=== PATIENT | female | born 1995 | race Caucasian/White ===

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

== ENCOUNTER 2017-03-21 05:35 | Inpatient (IN) ==
[~2017-03-21 05:35] MED LIST: 0.9 % Sodium Chloride 1,000 ML IVC ONE
[2017-03-21] MEDS ORDERED: *HR* Dextrose 50 % in Water (Syg) 50 ML SYRINGE IVP PRN (05:41)
[2017-03-21] MEDS ORDERED: NACL IVC SCH (05:45)
[2017-03-21] MEDS ORDERED: SODIUM BICARBONATE IVC SCH (05:45)
[2017-03-21] MEDS ORDERED: D5 IVC SCH (05:45)
--- NOTE | 2017-03-21 05:46 | Internal Med History&Physical ---
Date of Encounter: 03/21/17 Time of Encounter: 05:43 Assessment and Plan (1) Diabetic ketoacidosis Current visit: Yes Status: Acute Will give total of 3 L bolus, pH 6.8 so we will start bicarb drip. She was hypoglycemic honorifics or facilities will hold incident report no clear infectious etiology. Etiology is most likely due to noncompliance. She is having acute kidney injury, will aggressively hydrate and monitor urine output. Consult special educator. Inpatient admission. She will receive heparin and famotidine for DVT and peptic ulcer disease prophylaxis Qualifiers: Qualified Code(s): E13.10 - Other specified diabetes mellitus with ketoacidosis without coma Internal Medicine - H&P: HPI Chief complaint: unrsponsive History of present illness: Ms. Black is a 21 year old female with type I diabetes mellitus was sent to [place] emergency room because of unresponsiveness. Patient has been getting progressively weaken lethargic over the past day. She was found to be in severe DKA in laboratory workup PERFORMED in [place] emergency room. Etiology is probably medication noncompliance. She denies any fever chills worsening cough, expectoration, diarrhea or urinary symptoms. Patient was transferred to our facility. She was more awake during my interview. Past Med Surg Social Fam HX - Past Medical History Medical history: diabetes Psychiatric history: ADHD, bipolar - Past Surgical History Surgical History: no surgical history - Social History Smoking Status: Never smoker Smokeless Tobacco Status: No Alcohol use: none Drug use: none - Family History Father Family Member Ethnicity: Non- Living Status: Still Living Hx Family Cardiac Disorders: Yes Hx Family Respiratory Disorders: Yes Hx Family Cancer: Yes Mother Family Member Ethnicity: Non- Living Status: Still Living Hx Family Cardiac Disorders: Yes (HTN) Hx Family Respiratory Disorders: Yes (Asthma) Hx Family Cancer: Yes Hx Family Endocrine Disorder: Yes Brother Family Member Ethnicity: Non- Living Status: Still Living Hx Family Respiratory Disorders: Yes (Asthma) Sister Family Member Ethnicity: Non- Living Status: Still Living Hx Family Respiratory Disorders: Yes (Asthma) Internal Medicine - H&P: Meds Insulin ASPART [NovoLOG] 8 unit SQ TIDWM #5 mls 11/17/16 [Rx] Insulin Glargine [Lantus] 28 unit SQ HS #9 mls 11/17/16 [Rx] Insulin NPH/REG 70/30 [HumuLIN 70/30 VIAL] 30 unit SQ BIDWM #3 vial 11/17/16 [Rx ] 3 Allergy/AdvReac Type Severity Reaction Status Date / Time surgical tape Allergy Redness of Uncoded 09/26/16 01:35 Skin All Systems PM: A 10-system review of systems was performed and is negative for pertinent findings except as documented above in the HPI. Review of systems: 10 point review of systems is negative except for HPI - Constitutional Vitals: Temp Pulse Resp BP Pulse Ox 98.2 F 112 18 115/72 100 03/21/17 04:35 03/21/17 04:35 03/21/17 04:35 03/21/17 04:35 03/21/17 04:35 Exam: Gen.: patient is lethargic not in distress. Cardiac: normal S1 S2 no additional sounds or murmurs chest: fair air entry. no active wheezing. No crackles or bronchial breathing. abdomen: soft nontender nondistended normal bowel sounds neuro: no focal deficit Mucous membranes: dry
[2017-03-21 06:03] LABS: Basophils % 0.2 %; Hematocrit 40.8 % (35.3-44.9); Hemoglobin 13.8 g/dL (11.5-15.4); Immature Granulocytes % 1.1 % (0-4); Immature Platelets 2.6 % (1.1-6.1); Lymphocytes # 0.6 K/mcL (0.6-4.6); Lymphocytes % 6.7 %; Mean Corpuscular HGB Conc 33.8 g/dL (31.6-35.5); Mean Corpuscular Hemoglobin 30.5 pg (28.0-33.3); Mean Corpuscular Volume 90.3 fL (83.0-100.0); Mean Platelet Volume 10.2 fL (9.4-12.4); Monocytes # 1.2 K/mcL (0.0-1.3); Monocytes % 14.8 %; Neutrophils # 6.5 K/mcL (1.6-8.9); Platelet Count 263 K/mcL (140-400); Red Blood Count 4.52 M/mcL (3.82-4.97); Red Cell Distribution Width 14.6 % (11.5-14.5); Segmented Neutrophils % 77.2 %
[2017-03-21 06:12] LABS: VBG PH 7.14 pH Units (7.32-7.42)
[2017-03-21 06:14] LABS: Beta-Hydroxybutyric Acid > 2.00 mmol/L (0.02-0.27)
[2017-03-21 06:16] LABS: BUN/Creatinine Ratio 12 (6-26); Blood Urea Nitrogen 11 mg/dL (7-20); Calcium 7.8 mg/dL (8.6-10.8); Chloride 119 mEq/L (98-109); Glucose 124 mg/dL (70-99); Magnesium 1.5 mg/dL (1.7-2.2); Osmolality,Calculated 305 (280-300); Potassium 2.7 mEq/L (3.5-4.5); Sodium 147 mEq/L (136-145); eGFR For African Americans > 60; eGFR For Non-African Americans > 60
[2017-03-21] MEDS: *HR* Heparin 5,000 UNIT/ML VIAL SQ SCH ×2 (06:17→17:57)
[2017-03-21 06:22] LABS: Carbon Dioxide 7 mEq/L (19-29)
[2017-03-21 06:26] LABS: Hemoglobin A1C 12.4 %
[2017-03-21] MEDS: Pantoprazole 40 MG VIAL IVP SCH (08:25)
[2017-03-21] MEDS: Insulin Human Regular 100 UNIT in 0.9 % Sodium Chloride 100 ML IVC SCH (08:25)
[2017-03-21] MEDS ORDERED: D5% in 0.45% NACL w KCl 20 MEQ/1,000 ML MLS IVC ONE (08:40)
[2017-03-21] MEDS: D5% in 0.45% NACL w KCl 20 MEQ/1,000 ML MLS IVC SCH ×4 (08:52→20:37)
[2017-03-21 10:20] LABS: VBG PH 7.09 pH Units (7.32-7.42)
[2017-03-21 10:27] LABS: BUN/Creatinine Ratio 7 (6-26); Blood Urea Nitrogen 8 mg/dL (7-20); Calcium 7.3 mg/dL (8.6-10.8); Chloride 117 mEq/L (98-109); Glucose 270 mg/dL (70-99); Osmolality,Calculated 306 (280-300); Potassium 2.8 mEq/L (3.5-4.5); Sodium 144 mEq/L (136-145); eGFR For African Americans > 60; eGFR For Non-African Americans > 60
[2017-03-21 10:29] LABS: Beta-Hydroxybutyric Acid > 2.00 mmol/L (0.02-0.27)
[2017-03-21 10:34] LABS: Carbon Dioxide 6 mEq/L (19-29)
[2017-03-21] MEDS ORDERED: Acetaminophen 325 MG TABLET PO PRN (12:11)
--- NOTE | 2017-03-21 14:04 | Internal Med Progress Note ---
Date of Encounter: 03/21/17 Time of Encounter: 14:02 - Assessment and plan (1) DKA (diabetic ketoacidoses) Current Visit: No Status: Acute Assessment and plan: Likely from medical noncompliance and/or severe dehydration. Minutes per DKA protocol. She is still on insulin drip right now running IV fluids. Continue per protocol VBG and BMP Qualifiers: Diabetes mellitus type: type 1 Diabetes mellitus complication detail: without coma Qualified Code(s): E10.10 - Type 1 diabetes mellitus with ketoacidosis without coma - Subjective Interval history: Since still on insulin drip, currently CO2 measured at 6. PH 7.09 bolus of fluid being given. She is in no acute distress. She cannot identify any recent illness or episodes of dehydration leading to DKA. - Constitutional Vitals: Temp Pulse Resp BP Pulse Ox 99.8 F H 100 24 107/63 100 03/21/17 11:30 03/21/17 11:30 03/21/17 11:30 03/21/17 11:30 03/21/17 11:30 Exam: Gen.: Drowsy, not in distress. Answers questions appropriately. AO 3. Cardiac: normal S1 S2 no additional sounds or murmurs chest: Good air entry. no wheezing. No crackles or bronchial breathing. abdomen: soft nontender nondistended normal bowel sounds neuro: no focal deficit Mucous membranes: dry Internal Medicine: Result - Labs CBC & Chem 7: 03/21/17 05:50 03/21/17 10:02 Labs: Short CBC 03/21/17 Range/Units 05:50 WBC 8.4 (4.3-11.1) K/mcL Hgb 13.8 D (11.5-15.4) g/dL Hct 40.8 (35.3-44.9) % Plt Count 263 (140-400) K/mcL Neutrophils # 6.5 (1.6-8.9) K/mcL BMP 03/21/17 03/21/17 05:50 10:02 Sodium 147 H 144 Potassium 2.7 L 2.8 L Chloride 119 H 117 H Carbon Dioxide 7 L* 6 L* BUN 11 8 Creatinine 0.90 1.07 Glucose 124 H 270 H Calcium 7.8 L 7.3 L - VTE Documentation of Mechanical Device: Intermittent pneumatic compression device Consult Discharge Plan - Plan Referrals: Jeb Smallwood, SHRUTI [Primary Care Provider] -
[2017-03-21 14:45] LABS: VBG PH 7.25 pH Units (7.32-7.42)
[2017-03-21 14:53] LABS: BUN/Creatinine Ratio 6 (6-26); Blood Urea Nitrogen 7 mg/dL (7-20); Calcium 7.5 mg/dL (8.6-10.8); Carbon Dioxide 11 mEq/L (19-29); Chloride 115 mEq/L (98-109); Glucose 231 mg/dL (70-99); Osmolality,Calculated 295 (280-300); Potassium 2.6 mEq/L (3.5-4.5); Sodium 140 mEq/L (136-145); eGFR For African Americans > 60; eGFR For Non-African Americans > 60
[2017-03-21 17:54] LABS: VBG PH 7.25 pH Units (7.32-7.42)
[2017-03-21 18:06] LABS: BUN/Creatinine Ratio 7 (6-26); Blood Urea Nitrogen 6 mg/dL (7-20); Calcium 7.5 mg/dL (8.6-10.8); Carbon Dioxide 15 mEq/L (19-29); Chloride 118 mEq/L (98-109); Glucose 128 mg/dL (70-99); Osmolality,Calculated 289 (280-300); Sodium 140 mEq/L (136-145); eGFR For African Americans > 60; eGFR For Non-African Americans > 60
[2017-03-21] MEDS ORDERED: Potassium Chloride 20 MEQ, Lidocaine 1% 2 ML in D5% in Water 250 ML IVPB ONE (18:24)
--- NOTE | 2017-03-21 19:31 | Electrocardiograph Report ---
[address] [address] Test Date: 2017-03-21 Pat Name: Brandi Black Department: 110 Room: 2N02 Gender: F Supervisor Transcribing Operators: : 1995 Requested By: Dom Lara Order Number: [id number] Reading MD: Aris Salinas MD Measurements Intervals [place] Rate: 93 P: 49 WV: 189 QRS: 82 QRSD: 95 T: -23 QT: 371 QTc: 422 Interpretive Statements SINUS RHYTHM Electronically Signed On 03-21-2017 19:29:42 EDT by Aris Salinas MD
--- NOTE | 2017-03-21 19:31 | Electrocardiograph Report ---
[place] [address] Test Date: 2017-03-21 Pat Name: Brandi Black Department: 110 Room: 2N02 Gender: Room Designer: : 1995 Requested By: Reynaldo Cowan Order Number: [id number] Reading MD: Aris Salinas MD Measurements Intervals [place] Rate: 93 P: 49 VT: 193 QRS: 82 QRSD: 92 T: -24 QT: 367 QTc: 418 Interpretive Statements SINUS RHYTHM Electronically Signed On 03-21-2017 19:29:58 EDT by Aris Salinas MD
[2017-03-21 22:33] LABS: VBG PH 7.33 pH Units (7.32-7.42)
[2017-03-21 22:38] LABS: BUN/Creatinine Ratio 6 (6-26); Calcium 7.9 mg/dL (8.6-10.8); Carbon Dioxide 14 mEq/L (19-29); Chloride 117 mEq/L (98-109); Glucose 185 mg/dL (70-99); Osmolality,Calculated 286 (280-300); Potassium 2.9 mEq/L (3.5-4.5); Sodium 137 mEq/L (136-145); eGFR For African Americans > 60; eGFR For Non-African Americans > 60
[2017-03-21 22:39] LABS: Blood Urea Nitrogen 5 mg/dL (7-20)
[2017-03-22] MEDS: Insulin Human Regular 100 UNIT in 0.9 % Sodium Chloride 100 ML IVC SCH (00:10)
[2017-03-22] MEDS: D5% in 0.45% NACL w KCl 20 MEQ/1,000 ML MLS IVC SCH ×5 (00:49→18:12)
[2017-03-22 04:06] LABS: Basophils % 0.2 %; Eosinophils # 0.1 K/mcL (0.0-0.6); Eosinophils % 1.4 %; Hematocrit 34.4 % (35.3-44.9); Hemoglobin 12.3 g/dL (11.5-15.4); Immature Granulocytes % 0.5 % (0-4); Lymphocytes # 1.7 K/mcL (0.6-4.6); Lymphocytes % 37.7 %; Mean Corpuscular HGB Conc 35.8 g/dL (31.6-35.5); Mean Corpuscular Hemoglobin 31.4 pg (28.0-33.3); Mean Corpuscular Volume 87.8 fL (83.0-100.0); Mean Platelet Volume 10.1 fL (9.4-12.4); Monocytes # 0.7 K/mcL (0.0-1.3); Monocytes % 15.6 %; Platelet Count 159 K/mcL (140-400); Red Blood Count 3.92 M/mcL (3.82-4.97); Red Cell Distribution Width 15.8 % (11.5-14.5); Segmented Neutrophils % 44.6 %
[2017-03-22 04:10] LABS: VBG PH 7.27 pH Units (7.32-7.42)
[2017-03-22 04:25] LABS: BUN/Creatinine Ratio 5 (6-26); Calcium 7.7 mg/dL (8.6-10.8); Carbon Dioxide 15 mEq/L (19-29); Chloride 117 mEq/L (98-109); Glucose 188 mg/dL (70-99); Osmolality,Calculated 290 (280-300); Potassium 3.2 mEq/L (3.5-4.5); Sodium 139 mEq/L (136-145); eGFR For African Americans > 60; eGFR For Non-African Americans > 60
[2017-03-22 04:27] LABS: Blood Urea Nitrogen 4 mg/dL (7-20)
[2017-03-22] MEDS: *HR* Heparin 5,000 UNIT/ML VIAL SQ SCH ×2 (05:16→18:13)
[2017-03-22 09:09] LABS: VBG PH 7.32 pH Units (7.32-7.42)
[2017-03-22 09:16] LABS: BUN/Creatinine Ratio 4 (6-26); Calcium 7.9 mg/dL (8.6-10.8); Carbon Dioxide 18 mEq/L (19-29); Chloride 116 mEq/L (98-109); Glucose 116 mg/dL (70-99); Osmolality,Calculated 288 (280-300); Potassium 2.7 mEq/L (3.5-4.5); Sodium 140 mEq/L (136-145); eGFR For African Americans > 60; eGFR For Non-African Americans > 60
[2017-03-22 09:18] LABS: Blood Urea Nitrogen 3 mg/dL (7-20)
[2017-03-22] MEDS: Pantoprazole 40 MG VIAL IVP SCH (09:33)
[2017-03-22 12:58] LABS: VBG PH 7.27 pH Units (7.32-7.42)
[2017-03-22 13:03] LABS: BUN/Creatinine Ratio 4 (6-26); Calcium 7.8 mg/dL (8.6-10.8); Carbon Dioxide 17 mEq/L (19-29); Chloride 113 mEq/L (98-109); Glucose 209 mg/dL (70-99); Osmolality,Calculated 289 (280-300); Potassium 2.9 mEq/L (3.5-4.5); Sodium 138 mEq/L (136-145); eGFR For African Americans > 60; eGFR For Non-African Americans > 60
[2017-03-22 13:04] LABS: Blood Urea Nitrogen 3 mg/dL (7-20)
[2017-03-22] MEDS ORDERED: *HR* Dextrose 50 % in Water (Syg) 50 ML SYRINGE IVP PRN (15:49)
[2017-03-22] MEDS ORDERED: Magnesium Sulfate 2 GM in D5% in Water 100 ML IVPB PRN (15:52)
[2017-03-22] MEDS ORDERED: 0.9 % Sodium Chloride w KCl 20 MEQ/1,000 ML MLS IVC SCH (16:00)
[2017-03-22] MEDS ORDERED: Insulin Human Regular 100 UNIT in 0.9 % Sodium Chloride 100 ML IVC SCH (16:00)
[2017-03-22 16:22] LABS: Bilirubin,Urine Negative (Negative); Blood,Urine Moderate (Negative); Clarity,Urine Clear (Clear); Color,Urine Yellow (Yellow); Glucose,Urine (UA) 100 mg/dL (Normal); Ketones,Urine Negative (Negative); Leukocyte Esterase,Urine Trace (Negative); Nitrite,Urine Negative (Negative); Protein,Urine Negative (Neg-Trace); Specific Gravity,Urine 1.007 (1.010-1.025); Urobilinogen,Urine Normal (Normal)
[2017-03-22 16:43] LABS: VBG PH 7.37 pH Units (7.32-7.42)
[2017-03-22 16:58] LABS: BUN/Creatinine Ratio 3 (6-26); Calcium 7.7 mg/dL (8.6-10.8); Carbon Dioxide 17 mEq/L (19-29); Chloride 113 mEq/L (98-109); Glucose 212 mg/dL (70-99); Osmolality,Calculated 284 (280-300); Potassium 3.5 mEq/L (3.5-4.5); Sodium 136 mEq/L (136-145); eGFR For African Americans > 60; eGFR For Non-African Americans > 60
[2017-03-22 16:59] LABS: Blood Urea Nitrogen 2 mg/dL (7-20)
--- NOTE | 2017-03-22 18:38 | Internal Med Progress Note ---
Date of Encounter: 03/22/17 Time of Encounter: 12:00 - Assessment and plan (1) DKA (diabetic ketoacidoses) Current Visit: No Status: Inactive Assessment and plan: Poorly controlled T1DM patient, A1C was 12. Continue treatment per DKA protocol. Qualifiers: Diabetes mellitus type: type 1 Diabetes mellitus complication detail: without coma Qualified Code(s): E10.10 - Type 1 diabetes mellitus with ketoacidosis without coma - Subjective Interval history: Since still on insulin drip, currently CO2 measured at 6. PH 7.09 bolus of fluid being given. She is in no acute distress. She cannot identify any recent illness or episodes of dehydration leading to DKA. - Constitutional Vitals: Temp Pulse Resp BP Pulse Ox 98.5 F 98 14 117/92 100 03/22/17 15:31 03/22/17 18:08 03/22/17 15:31 03/22/17 15:31 03/22/17 18:08 General appearance: Present: A&O X 3, no acute distress - Respiratory Respiratory exam: Present: CTAB. Absent: accessory muscle use, rales, rhonchi, wheezes - Cardiovascular Cardiovascular exam: Present: RRR, +S1, +S2. Absent: diastolic murmur, gallop, rubs, systolic murmur - GI/Abdominal GI/Abdominal exam: Present: normal bowel sounds, soft, no peritoneal signs. Absent: distended, tenderness Internal Medicine: Result - Labs CBC & Chem 7: 03/22/17 03:52 03/22/17 19:59 Labs: Short CBC 03/22/17 Range/Units 03:52 WBC 4.4 (4.3-11.1) K/mcL Hgb 12.3 D (11.5-15.4) g/dL Hct 34.4 L (35.3-44.9) % Plt Count 159 (140-400) K/mcL Neutrophils # 2.0 (1.6-8.9) K/mcL BMP 03/21/17 03/22/17 03/22/17 22:21 03:52 08:44 Sodium 137 139 140 Potassium 2.9 L 3.2 L 2.7 L Chloride 117 H 117 H 116 H Carbon Dioxide 14 L 15 L 18 L BUN 5 L 4 L 3 L Creatinine 0.81 0.78 0.70 Glucose 185 H 188 H 116 H Calcium 7.9 L 7.7 L 7.9 L 03/22/17 03/22/17 12:44 16:34 Sodium 138 136 Potassium 2.9 L 3.5 Chloride 113 H 113 H Carbon Dioxide 17 L 17 L BUN 3 L 2 L Creatinine 0.72 0.67 Glucose 209 H 212 H Calcium 7.8 L 7.7 L Urine 03/22/17 Range/Units 16:15 Urine Color Yellow (Yellow) Urine Clarity Clear (Clear) Urine pH 6.0 (5.0-8.0) pH Units Ur Specific [place] 1.007 L (1.010-1.025) Urine Protein Negative (Neg-Trace) mg/dL Urine Glucose (UA) 100 H (Normal) mg/dL - VTE Documentation of Mechanical Device: Intermittent pneumatic compression device Consult Discharge Plan - Plan Referrals: Jeb Smallwood, WORK MEASUREMENT ENGINEER [Primary Care Provider] - (SENT WEB REQUEST ON 03-22-17 @ 1447)
[2017-03-22 20:05] LABS: VBG PH 7.48 pH Units (7.32-7.42)
[2017-03-22 20:20] LABS: BUN/Creatinine Ratio 4 (6-26); Carbon Dioxide 19 mEq/L (19-29); Chloride 114 mEq/L (98-109); Glucose 91 mg/dL (70-99); Osmolality,Calculated 282 (280-300); Potassium 3.3 mEq/L (3.5-4.5); Sodium 138 mEq/L (136-145); eGFR For African Americans > 60; eGFR For Non-African Americans > 60
[2017-03-22 20:22] LABS: Blood Urea Nitrogen 2 mg/dL (7-20)
[2017-03-22] MEDS ORDERED: Dextrose Gel 15 GM PO PRN ×2 (21:32)
[2017-03-22] MEDS ORDERED: D5% in Water 1,000 ML IVC PRN (21:32)
[2017-03-23] MEDS: Insulin LISPRO 300 UNITS/3 ML VIAL SQ SCH ×7 (01:28→17:36)
[2017-03-23] MEDS: *HR* Heparin 5,000 UNIT/ML VIAL SQ SCH ×2 (05:17→18:01)
[2017-03-23 05:27] LABS: Basophils % 0.8 %; Eosinophils # 0.1 K/mcL (0.0-0.6); Eosinophils % 2.1 %; Hematocrit 35.5 % (35.3-44.9); Hemoglobin 12.4 g/dL (11.5-15.4); Immature Granulocytes % 0.3 % (0-4); Lymphocytes # 1.9 K/mcL (0.6-4.6); Lymphocytes % 49.6 %; Mean Corpuscular HGB Conc 34.9 g/dL (31.6-35.5); Mean Corpuscular Hemoglobin 30.6 pg (28.0-33.3); Mean Corpuscular Volume 87.7 fL (83.0-100.0); Mean Platelet Volume 10.6 fL (9.4-12.4); Monocytes # 0.5 K/mcL (0.0-1.3); Monocytes % 13.1 %; Neutrophils # 1.3 K/mcL (1.6-8.9); Platelet Count 160 K/mcL (140-400); Red Blood Count 4.05 M/mcL (3.82-4.97); Red Cell Distribution Width 15.8 % (11.5-14.5); Segmented Neutrophils % 34.1 %
[2017-03-23 06:00] LABS: BUN/Creatinine Ratio 3 (6-26); Calcium 8.4 mg/dL (8.6-10.8); Carbon Dioxide 19 mEq/L (19-29); Chloride 111 mEq/L (98-109); Glucose 226 mg/dL (70-99); Osmolality,Calculated 289 (280-300); Potassium 3.6 mEq/L (3.5-4.5); Sodium 138 mEq/L (136-145); eGFR For African Americans > 60; eGFR For Non-African Americans > 60
[2017-03-23 06:06] LABS: Blood Urea Nitrogen 2 mg/dL (7-20)
[2017-03-23] MEDS: Pantoprazole 40 MG VIAL IVP SCH (07:48)
[2017-03-23] MEDS: Insulin DETEMIR 100 UNIT/ML X5UNITS SQ SCH (08:57)
--- NOTE | 2017-03-23 09:18 | Internal Med Progress Note ---
Date of Encounter: 03/23/17 Time of Encounter: 09:00 - Assessment and plan (1) Diabetic ketoacidosis Current Visit: Yes Status: Acute Assessment and plan: Suspected noncompliance, although patient reports compliance to meds and diet. Acidosis is currently resolved, off IV insulin drip. Discontinue IV fluids. Start subcutaneous basal bolus insulin regimen and diabetic diet. Blood sugar noted to be elevated this morning as she did not receive long acting insulin. certified adapted physical educator consult. HbA1C noted to be 12.4%. Qualifiers: Diabetes mellitus type: type 1 Diabetes mellitus complication detail: without coma Qualified Code(s): E10.10 - Type 1 diabetes mellitus with ketoacidosis without coma (2) Hypomagnesemia Current Visit: Yes Status: Acute Assessment and plan: Supplement with IV magnesium sulfate and continue to monitor. (3) Hypophosphatemia Current Visit: Yes Status: Acute Assessment and plan: Severe. Replete with IV and oral potassium and sodium phosphate, and recheck in am. - Subjective Interval history: Reports feeling better today; tolerates solid diet; no nausea, vomiting, abdominal pain; off IV insulin drip; reports having slightly elevated HR since childhood; - Constitutional Vitals: Temp Pulse Resp BP Pulse Ox 98.6 F 93 16 120/74 99 03/23/17 07:05 03/23/17 07:36 03/23/17 07:05 03/23/17 07:05 03/23/17 07:36 General appearance: Present: A&O X 3, answers questions appropriately - Respiratory Respiratory exam: Present: CTAB. Absent: accessory muscle use, rales, rhonchi, wheezes - Cardiovascular Cardiovascular exam: Present: RRR, +S1, +S2, tachycardia. Absent: diastolic murmur, gallop, rubs, systolic murmur - GI/Abdominal GI/Abdominal exam: Present: normal bowel sounds, soft, no peritoneal signs. Absent: distended, tenderness - Extremities Exam Extremities exam: Present: full ROM, warm, radial pulses palpable and symmetrical. Absent: calf tenderness, cyanotic, pedal edema - Neurological Exam Neurological exam: Present: CN II-XII intact, oriented X3, no focal deficits. Absent: pronater drift, facial droop, speech deficit Internal Medicine: Result - Labs CBC & Chem 7: 03/23/17 04:25 03/23/17 04:25 Labs: Short CBC 03/23/17 Range/Units 04:25 WBC 3.8 L (4.3-11.1) K/mcL Hgb 12.4 (11.5-15.4) g/dL Hct 35.5 (35.3-44.9) % Plt Count 160 (140-400) K/mcL Neutrophils # 1.3 L (1.6-8.9) K/mcL BMP 03/22/17 03/22/17 03/22/17 08:44 12:44 16:34 Sodium 140 138 136 Potassium 2.7 L 2.9 L 3.5 Chloride 116 H 113 H 113 H Carbon Dioxide 18 L 17 L 17 L BUN 3 L 3 L 2 L Creatinine 0.70 0.72 0.67 Glucose 116 H 209 H 212 H Calcium 7.9 L 7.8 L 7.7 L 03/22/17 03/23/17 19:59 04:25 Sodium 138 138 Potassium 3.3 L 3.6 Chloride 114 H 111 H Carbon Dioxide 19 19 BUN 2 L 2 L Creatinine 0.56 L 0.66 Glucose 91 226 H Calcium 8.0 L 8.4 L Urine 03/22/17 Range/Units 16:15 Urine Color Yellow (Yellow) Urine Clarity Clear (Clear) Urine pH 6.0 (5.0-8.0) pH Units Ur Specific [place] 1.007 L (1.010-1.025) Urine Protein Negative (Neg-Trace) mg/dL Urine Glucose (UA) 100 H (Normal) mg/dL - VTE Documentation of Mechanical Device: Intermittent pneumatic compression device Consult Discharge Plan - Plan Referrals: Jeb Smallwood CNP [Primary Care Provider] - 03/29/17 11:00 am ()
[2017-03-23 13:10] LABS: Magnesium 1.6 mg/dL (1.7-2.2)
[2017-03-23 13:14] LABS: Phosphorous < 0.7 mg/dL (2.3-4.7)
[2017-03-23] MEDS ORDERED: Potassium Phosphate 44 MEQ in 0.9 % Sodium Chloride 250 ML IVPB ONE (13:18)
[2017-03-23] MEDS ORDERED: Magnesium Sulfate 2 GM in D5% in Water 100 ML IVPB ONE (13:18)
[2017-03-23] MEDS ORDERED: Insulin LISPRO 300 UNITS/3 ML VIAL SQ SCH (21:00)
[2017-03-24] MEDS: *HR* Heparin 5,000 UNIT/ML VIAL SQ SCH (05:22)
[2017-03-24 05:50] LABS: Basophils % 0.3 %; Eosinophils % 1.4 %; Hematocrit 33.2 % (35.3-44.9); Hemoglobin 11.5 g/dL (11.5-15.4); Lymphocytes # 1.6 K/mcL (0.6-4.6); Lymphocytes % 56.4 %; Mean Corpuscular HGB Conc 34.6 g/dL (31.6-35.5); Mean Corpuscular Hemoglobin 30.3 pg (28.0-33.3); Mean Corpuscular Volume 87.6 fL (83.0-100.0); Mean Platelet Volume 10.3 fL (9.4-12.4); Monocytes # 0.3 K/mcL (0.0-1.3); Neutrophils # 0.9 K/mcL (1.6-8.9); Platelet Count 157 K/mcL (140-400); Red Blood Count 3.79 M/mcL (3.82-4.97); Segmented Neutrophils % 31.9 %
[2017-03-24 06:04] LABS: BUN/Creatinine Ratio 22 (6-26); Calcium 8.4 mg/dL (8.6-10.8); Carbon Dioxide 28 mEq/L (19-29); Chloride 102 mEq/L (98-109); Glucose 238 mg/dL (70-99); Magnesium 1.8 mg/dL (1.7-2.2); Osmolality,Calculated 294 (280-300); Phosphorous 4.6 mg/dL (2.3-4.7); Potassium 3.4 mEq/L (3.5-4.5); Sodium 138 mEq/L (136-145); eGFR For African Americans > 60; eGFR For Non-African Americans > 60
[2017-03-24 06:05] LABS: Blood Urea Nitrogen 13 mg/dL (7-20)
[2017-03-24 07:19] VITALS: BP 114/75
[2017-03-24] MEDS: Insulin DETEMIR 100 UNIT/ML X5UNITS SQ SCH (08:01)
[2017-03-24] MEDS: Insulin LISPRO 300 UNITS/3 ML VIAL SQ SCH ×2 (08:02)
--- NOTE | 2017-03-24 09:45 | Discharge Summary ---
Date of Encounter: 03/24/17 Time of Encounter: 09:41 - Discharge Diagnosis (1) DKA (diabetic ketoacidoses) Priority: Primary Status: Resolved Comments: Possibly secondary to noncompliance Qualifiers: Diabetes mellitus type: type 1 Diabetes mellitus complication detail: with coma Qualified Code(s): E10.11 - Type 1 diabetes mellitus with ketoacidosis with coma (2) H/O noncompliance with medical treatment, presenting hazards to health Priority: Secondary Status: Chronic (3) Adult ADHD Priority: Secondary Status: Chronic (4) Bipolar disorder Priority: Secondary Status: Chronic Qualifiers: Active/Remission status: remission status unspecified Qualified Code(s): F31.9 - Bipolar disorder, unspecified (5) Hypomagnesemia Priority: Secondary Status: Acute (6) Hypophosphatemia Priority: Secondary Status: Acute - Discharge Medications Prescriptions: Insulin ASPART [Novolog Flexpen] 6 unit SQ TIDWM 30 Days #2 insuln.pen Insulin Glargine,Hum.rec.anlog [Lantus Solostar] 28 unit SQ QAM 30 Days #2 insuln.pen Home Medications: Insulin ASPART [Novolog Flexpen] 6 unit SQ TIDWM 30 Days #2 insuln.pen 03/24/17 [Rx] Insulin Glargine,Hum.rec.anlog [Lantus Solostar] 28 unit SQ QAM 30 Days #2 insuln.pen 03/24/17 [Rx] Insulin LISPRO [HumaLOG] 0 units SQ HS vial 03/24/17 [Rx] Insulin LISPRO [HumaLOG] 0 units SQ TIDAC vial 03/24/17 [Rx] Allergies/Adverse Reactions: 3 Allergy/AdvReac Type Severity Reaction Status Date / Time surgical tape Allergy Redness of Uncoded 09/26/16 01:35 Skin Date of admission: 03/21/17 05:35 Primary care physician: Jeb Smallwood CNP Consults: 03/23/17 12:46 Consult to Maintenance Analyst [CONS] Routine Reason for SW Consult: pt may need financial assistance with getting required medications, living arrangements. - Patient Status Disposition: Home, Self-Care Condition: Good Overall status at discharge: patient is back to baseline - Discharge Instructions Follow Up With: Jeb Smallwood CNP [Primary Care Provider] - 03/29/17 11:00 am () Additional Instructions: Follow-up with primary care physician within the next 7 days. Continue insulin therapy at home and be compliant with all doses. - Diet and Activity Activity: increase activity as tolerated Diet: diabetic diet Hospital course: Ms. Black is a 21 year old female with a past medical history of type I diabetes mellitus, ADHD, bipolar disorder, was sent from [place] emergency room because of unresponsiveness. Patient has been getting progressively weaker , and lethargic over the past day. She was found to be in severe DKA in laboratory workup PERFORMED in [place] emergency room. Etiology is probably medication noncompliance. She denied any fever chills worsening cough, expectoration, diarrhea or urinary symptoms. UA and chest x-rays were unremarkable. PH was 6.8 for which she was started on a bicarbonate drip, she was continued on an insulin drip which resolved her DKA. The patient was given the option to modify her insulin schedule but she says that she prefers to stay with her own schedule of lispro 6 units 3 times a day with insulin sliding scale and 28 units of Lantus at night. She was given new prescriptions, as it is not known whether the patient has been storing her insulin properly or not. Potassium was 2.9 was repleted, to basically 0.4. Phosphorus was less than 0.7 and was repleted, today is 4.6, magnesium was low as well and today's 1.8. - Time Spent with Patient Total time spent providing and/or coordinating discharge services: Greater than 30 minutes (40 min) - Constitutional Vitals: Temp Pulse Resp BP Pulse Ox 98.0 F 87 16 114/75 99 03/24/17 07:13 03/24/17 07:13 03/24/17 07:13 03/24/17 07:13 03/24/17 07:13 General appearance: Present: A&O X 3, answers questions appropriately - Head Head exam: Present: atraumatic, normocephalic - Eye Eye exam: Present: PERRL, conjuntiva pink, sclera anicteric Pupils: Present: PERRL - Neck Neck exam general surgery: Present: supple, trachea midline. Absent: lymphadenopathy - Respiratory Respiratory exam: Present: CTAB. Absent: accessory muscle use, rales, rhonchi, wheezes - Cardiovascular Cardiovascular exam: Present: RRR, +S1, +S2. Absent: diastolic murmur, gallop, rubs, systolic murmur - GI/Abdominal GI/Abdominal exam: Present: normal bowel sounds, soft, no peritoneal signs. Absent: distended, tenderness - Extremities Exam Extremities exam: Present: warm, radial pulses palpable and symmetrical. Absent : calf tenderness, cyanotic, pedal edema - Neurological Exam Neurological exam: Present: CN II-XII intact, oriented X3, no focal deficits. Absent: pronater drift, facial droop, speech deficit - Skin Skin exam: Present: dry, intact - VTE Documentation of Mechanical Device: Intermittent pneumatic compression device
== END 2017-03-24 12:17 | disposition home or self-care (01) | DRG 420 ==
LOC: 2NNU → SUATTDRO 05:35 → 2ANU 03-23 10:38
PROVIDERS: ADMIT Hospitalist; ATTEND Internal Medicine

== ENCOUNTER 2017-04-04 13:51 | Inpatient (IN) ==
[2017-04-04] MEDS ORDERED: Naloxone 0.4 MG/ML INJ IVP PRN (16:13)
[2017-04-04] MEDS ORDERED: D5% in 0.45% NACL 1,000 ML IVC PRN (16:16)
[2017-04-04] MEDS ORDERED: Insulin Regular, Human 100 UNIT/ML IV PRN (16:16)
[2017-04-04] MEDS ORDERED: *HR* Dextrose 50 % in Water (Syg) 50 ML SYRINGE IVP PRN (16:16)
[2017-04-04] MEDS ORDERED: Insulin Human Regular 100 UNIT in 0.9 % Sodium Chloride 100 ML IVC SCH (16:30)
[2017-04-04] MEDS ORDERED: 0.9 % Sodium Chloride 1,000 ML IVC SCH (16:30)
--- NOTE | 2017-04-04 16:32 | Internal Med History&Physical ---
Date of Encounter: 04/04/17 Time of Encounter: 16:31 Assessment and Plan (1) DVT prophylaxis Current visit: No Status: Acute Subcutaneous heparin (2) Encephalopathy Current visit: No Status: Acute Aspiration precautions. Avoid sedatives. (3) Diabetic ketoacidosis Current visit: No Status: Acute Patient with a blood glucose of greater than 700, positive ketones and pH of 7.02 supporting diagnosis of DKA with severe metabolic acidosis. We will admit the patient to the ICU. She received a bolus of IV fluids at [facility]. We will start normal saline at 500 mL per hour. Add potassium according to staff potassium levels. Check stat labs including Chem-7 and magnesium and CBC lactic acid and ABG. Urinalysis and chest x-ray shows no source of infection. Abdomen is nontender nondistended and therefore I do not suspect an abdominal source. We will start insulin drip per DKA protocol with blood glucose fingerstick every one hour and adjustment of infusion rate. We will check BMP and VBG every 4 hour and determine anion gap and monitor venous pH. Based on the pH of 7.02 to I recommended administration of 100 mEq of sodium bicarbonate which was given [facility]. I will repeat ABG. We will readminister sodium bicarbonate if arterial pH is less than 7.1. The high probability of emergent and significant clinical decompensation with potential impairment of organ function including cardiovascular and respiratory systems required my full attention and presence at the bedside. I spent 40 minutes of critical care time which involved decision making of high complexity to assess, manipulate, and support vital organ system, in order to prevent further life threatening deterioration of the patient's condition. The critical care time was spent in the patient's room and/or its close proximity and involved obtaining updated history and examining the patient, reviewing EKGs, imaging studies and laboratory data, ordering medications and laboratory studies , and reevaluating for clinical response. The time took performing any procedures was not included in the critical care time quoted above and is billed separately. Qualifiers: Diabetes mellitus type: type 1 Diabetes mellitus complication detail: without coma Qualified Code(s): E10.10 - Type 1 diabetes mellitus with ketoacidosis without coma (4) Metabolic acidosis Current visit: Yes Status: Acute Secondary to DKA, possibly combined with lactic acidosis. We will treat with bolus IV sodium bicarbonate and pH is less than 7.1. Internal Medicine - H&P: HPI Chief complaint: unresponsive Admitted From: Intrahospital Transfer Plans for Post Hospital Care: Home History of present illness: Ms. Black is a 21 year old female with past medical history significant for type 1 diabetes with multiple episodes of DKA who was transferred from [facility] where she was brought by EMS for evaluation of unresponsiveness. She cannot provide reliable history due to altered mental status secondary to encephalopathy. Per [facility] chart her sisters reported that she has been vomiting since 11 PM last night. Her blood glucose was elevated she appeared to be unresponsive. She was treated with IV fluids and insulin and transferred to our hospital for further care. Per our records review she was discharged from our hospital after being admitted for DKA 9 days ago. Review of systems could not be obtained due to altered mental status Past Med Surg Social Fam HX - Past Medical History Medical history: diabetes, other Psychiatric history: ADHD, bipolar - Past Surgical History Surgical History: no surgical history - Social History Smoking Status: Never smoker Smokeless Tobacco Status: No Alcohol use: none Drug use: none - Family History Father Family Member Ethnicity: Non- Living Status: Still Living Hx Family Cardiac Disorders: Yes Hx Family Respiratory Disorders: Yes Hx Family Cancer: Yes Mother Family Member Ethnicity: Non- Living Status: Still Living Hx Family Cardiac Disorders: Yes (HTN) Hx Family Respiratory Disorders: Yes (Asthma) Hx Family Cancer: Yes Hx Family Endocrine Disorder: Yes Brother Family Member Ethnicity: Non- Living Status: Still Living Hx Family Respiratory Disorders: Yes (Asthma) Sister Family Member Ethnicity: Non- Living Status: Still Living Hx Family Respiratory Disorders: Yes (asthma) Internal Medicine - H&P: Meds Insulin ASPART [Novolog Flexpen] 6 unit SQ TIDWM 30 Days #2 insuln.pen 03/24/17 [Rx] Insulin Glargine,Hum.rec.anlog [Lantus Solostar] 28 unit SQ QAM 30 Days #2 insuln.pen 03/24/17 [Rx] Insulin LISPRO [HumaLOG] 0 units SQ HS vial 03/24/17 [Rx] Insulin LISPRO [HumaLOG] 0 units SQ TIDAC vial 03/24/17 [Rx] 3 Allergy/AdvReac Type Severity Reaction Status Date / Time surgical tape Allergy Redness of Uncoded 09/26/16 01:35 Skin All Systems PM: A 10-system review of systems was performed and is negative for pertinent findings except as documented above in the HPI. - Constitutional Vitals: Temp Pulse Resp BP Pulse Ox 97.6 F 116 26 137/87 100 04/04/17 15:45 04/04/17 15:45 04/04/17 15:45 04/04/17 15:45 04/04/17 15:45 General appearance: Present: A&O X 0 - Eye Eye exam: Present: PERRL, conjuntiva pink, sclera anicteric Pupils: Present: PERRL - Neck Neck exam general surgery: Present: supple, trachea midline. Absent: lymphadenopathy - Respiratory Respiratory exam: Present: CTAB, tachypnea (Kussmaul breathing). Absent: accessory muscle use, rales, rhonchi, wheezes - Cardiovascular Cardiovascular exam: Present: RRR, +S1, +S2, tachycardia. Absent: diastolic murmur, gallop, rubs, systolic murmur - GI/Abdominal GI/Abdominal exam: Present: normal bowel sounds, soft, no peritoneal signs. Absent: distended, tenderness - Extremities Exam Extremities exam: Present: warm, radial pulses palpable and symmetrical. Absent : calf tenderness, cyanotic, pedal edema - Neurological Exam Additional comments: Obtunded - Skin Skin exam: Present: dry, intact Internal Med - H&P Results - Labs CBC & Chem 7: 04/04/17 16:51 Labs: Reviewed from [facility] medical record laboratory data for 2016: ABG: PH 7.02, CO2 15, O2 144 Chem-7: Sodium 1:30, potassium 4.0, chloride 102, bicarbonate less than 5, BUN 15, creatinine 1.63, glucose 758. Urinalysis negative for nitrite and leukocyte esterase Urine drug screen mckenzie-negative - Impressions CXR: no acute cardiopulmonary disease
[2017-04-04] MEDS: 0.45 % Sodium Chloride w/KCl 20 MEQ/1,000 ML MLS IVC SCH ×6 (16:40→23:58)
[2017-04-04 16:59] LABS: Basophils # 0.1 K/mcL (0.0-0.2); Basophils % 0.4 %; Eosinophils % 0.1 %; Hematocrit 39.5 % (35.3-44.9); Hemoglobin 13.7 g/dL (11.5-15.4); Immature Granulocytes % 2.4 % (0-4); Immature Platelets 3.6 % (1.1-6.1); Lymphocytes # 1.8 K/mcL (0.6-4.6); Lymphocytes % 8.9 %; Mean Corpuscular HGB Conc 34.7 g/dL (31.6-35.5); Mean Corpuscular Hemoglobin 31.2 pg (28.0-33.3); Mean Platelet Volume 9.9 fL (9.4-12.4); Monocytes # 0.9 K/mcL (0.0-1.3); Monocytes % 4.5 %; Neutrophils # 17.1 K/mcL (1.6-8.9); Platelet Count 225 K/mcL (140-400); Red Blood Count 4.39 M/mcL (3.82-4.97); Red Cell Distribution Width 13.9 % (11.5-14.5); Segmented Neutrophils % 83.7 %
[2017-04-04] MEDS: Famotidine 20 MG/2 ML VIAL IVP SCH (17:10)
[2017-04-04 17:11] LABS: BUN/Creatinine Ratio 12 (6-26); Blood Urea Nitrogen 12 mg/dL (7-20); Chloride 111 mEq/L (98-109); Glucose 320 mg/dL (70-99); Magnesium 1.9 mg/dL (1.7-2.2); Osmolality,Calculated 296 (280-300); Potassium 3.2 mEq/L (3.5-4.5); Sodium 137 mEq/L (136-145); eGFR For African Americans > 60; eGFR For Non-African Americans > 60
[2017-04-04 17:14] LABS: ABG Base Excess -23 mEq/L (-2 to 3); ABG HCO3 4 mEq/L (21-27); ABG Oxygen Saturation 97 % (95-98); ABG PCO2 14 mmHg (35-45); ABG PH 7.12 pH Units (7.32-7.45); ABG PO2 123 mmHg (85-104); ABG TCO2 5 mEq/L (20-26)
[2017-04-04 17:17] LABS: Carbon Dioxide < 5 mEq/L (19-29)
[2017-04-04 21:08] LABS: BUN/Creatinine Ratio 11 (6-26); Blood Urea Nitrogen 10 mg/dL (7-20); Chloride 114 mEq/L (98-109); Glucose 200 mg/dL (70-99); Magnesium 1.7 mg/dL (1.7-2.2); Osmolality,Calculated 291 (280-300); Potassium 3.3 mEq/L (3.5-4.5); Sodium 138 mEq/L (136-145); eGFR For African Americans > 60; eGFR For Non-African Americans > 60
[2017-04-04] MEDS: D5% in 0.45% NACL w KCl 20 MEQ/1,000 ML MLS IVC PRN (21:11)
[2017-04-04 21:15] LABS: Carbon Dioxide < 5 mEq/L (19-29)
[2017-04-04] MEDS: *HR* Heparin 5,000 UNIT/ML VIAL SQ SCH (23:56)
[2017-04-05] MEDS: *HR* Heparin 5,000 UNIT/ML VIAL SQ SCH ×4 (00:06→21:11)
[2017-04-05] MEDS: 0.45 % Sodium Chloride w/KCl 20 MEQ/1,000 ML MLS IVC SCH ×10 (01:05→21:17)
[2017-04-05] MEDS: D5% in 0.45% NACL w KCl 20 MEQ/1,000 ML MLS IVC PRN ×2 (01:11→05:52)
[2017-04-05 01:17] LABS: BUN/Creatinine Ratio 10 (6-26); Blood Urea Nitrogen 8 mg/dL (7-20); Calcium 7.9 mg/dL (8.6-10.8); Chloride 120 mEq/L (98-109); Glucose 105 mg/dL (70-99); Magnesium 1.5 mg/dL (1.7-2.2); Osmolality,Calculated 287 (280-300); Potassium 3.2 mEq/L (3.5-4.5); Sodium 139 mEq/L (136-145); eGFR For African Americans > 60; eGFR For Non-African Americans > 60
[2017-04-05 01:20] LABS: Carbon Dioxide 9 mEq/L (19-29)
[2017-04-05] MEDS ORDERED: Magnesium Sulfate 2 GM in D5% in Water 100 ML IVPB ONE (01:36)
[2017-04-05 05:02] LABS: Basophils % 0.3 %; Eosinophils % 0.2 %; Hematocrit 32.1 % (35.3-44.9); Immature Granulocytes % 0.5 % (0-4); Lymphocytes # 1.8 K/mcL (0.6-4.6); Lymphocytes % 30.3 %; Mean Corpuscular HGB Conc 35.5 g/dL (31.6-35.5); Mean Corpuscular Volume 87.2 fL (83.0-100.0); Mean Platelet Volume 9.7 fL (9.4-12.4); Monocytes # 0.6 K/mcL (0.0-1.3); Monocytes % 10.2 %; Neutrophils # 3.5 K/mcL (1.6-8.9); Platelet Count 171 K/mcL (140-400); Red Blood Count 3.68 M/mcL (3.82-4.97); Red Cell Distribution Width 14.1 % (11.5-14.5); Segmented Neutrophils % 58.5 %
[2017-04-05 05:16] LABS: Alanine Aminotransferase 7 Units/L (0-55); Albumin 2.8 g/dL (3.5-5.0); Albumin/Globulin Ratio 1.2 (1.1-2.2); Alkaline Phosphatase 95 Units/L (38-126); Aspartate Amino Transferase 9 Units/L (5-34); BUN/Creatinine Ratio 9 (6-26); Bilirubin,Total 0.4 mg/dL (0.2-1.2); Blood Urea Nitrogen 7 mg/dL (7-20); Calcium 7.8 mg/dL (8.6-10.8); Carbon Dioxide 13 mEq/L (19-29); Chloride 118 mEq/L (98-109); Globulin 2.4 g/dL (2.4-3.5); Glucose 132 mg/dL (70-99); Magnesium 2.2 mg/dL (1.7-2.2); Osmolality,Calculated 288 (280-300); Potassium 2.7 mEq/L (3.5-4.5); Sodium 139 mEq/L (136-145); Total Protein 5.2 g/dL (6.0-8.3); eGFR For African Americans > 60; eGFR For Non-African Americans > 60
[2017-04-05 05:17] LABS: Hemoglobin 11.4 g/dL (11.5-15.4)
[2017-04-05 05:18] LABS: Phosphorous 0.8 mg/dL (2.3-4.7)
[2017-04-05] MEDS: Famotidine 20 MG/2 ML VIAL IVP SCH ×2 (05:52→18:21)
[2017-04-05] MEDS ORDERED: Ringers Solution, Lactated 1,000 ML IVC ONE ×2 (07:53→15:13)
[2017-04-05 08:53] LABS: Ionized Calcium 0.95 mmol/L (1.15-1.35)
[2017-04-05 09:00] LABS: BUN/Creatinine Ratio 8 (6-26); Blood Urea Nitrogen 6 mg/dL (7-20); Calcium 7.5 mg/dL (8.6-10.8); Carbon Dioxide 11 mEq/L (19-29); Chloride 116 mEq/L (98-109); Glucose 120 mg/dL (70-99); Osmolality,Calculated 281 (280-300); Phosphorous 1.2 mg/dL (2.3-4.7); Sodium 136 mEq/L (136-145); eGFR For African Americans > 60; eGFR For Non-African Americans > 60
[2017-04-05] MEDS ORDERED: D5% in Water 1,000 ML IVC PRN (11:07)
[2017-04-05] MEDS ORDERED: Dextrose Gel 15 GM PO PRN ×2 (11:07)
[2017-04-05] MEDS ORDERED: *HR* Dextrose 50 % in Water (Syg) 50 ML SYRINGE IVP PRN (11:07)
[2017-04-05] MEDS ORDERED: Insulin DETEMIR 100 UNIT/ML X5UNITS SQ SCH (11:15)
[2017-04-05] MEDS ORDERED: Insulin LISPRO 300 UNITS/3 ML VIAL SQ SCH ×4 (11:30→21:00)
[2017-04-05] MEDS ORDERED: Insulin Regular, Human 100 UNIT/ML IV PRN (14:57)
[2017-04-05] MEDS ORDERED: Calcium Gluconate 1,000 MG in D5% in Water 100 ML IVPB PRN (15:08)
--- NOTE | 2017-04-05 16:04 | Pulmonology Consult Note ---
<Stan Lafleur - Last Filed: 04/05/17 16:55> Date of Encounter: 04/05/17 Time of Encounter: 15:38 Assessment and Plan (1) Electrolyte abnormality Current Visit: No Status: Acute Electrolyte protocol Patient given replacement for potassium and phosphorus today Most recent BMP this morning was K 3.0 and phosphorus 1.2, and ionized calcium 0.95. PRN replacements for K, Phos, and Ca2+ are ordered Recheck electrolytes at 16:00 today, replace as necessary. (2) H/O noncompliance with medical treatment, presenting hazards to health Current Visit: No Status: Chronic Patient was recently discharged on the 03/29/17 for DKA admission. Patient states she is compliant with home medications, however she does not make her endocrinology appointments. Patient states this is due to father have not enough gas money. Paged endocrinology today and was unsuccessful. Will try again in the morning. Patient would benefit from SW consult as well. (3) DVT prophylaxis Current Visit: No Status: Acute heparin 5000 units Q8H Pepcid 20mg BID GI prophylaxis (4) DKA (diabetic ketoacidoses) Current Visit: No Status: Resolved Patient transferred to ICU for DKA with severe metabolic acidosis Today patient glucose is 113 and AG 8 and repeat gap was 9. Patient was on insulin drip this morning. Patient was placed on 20 units of basal insulin. 6 units TIDWM of short acting. After initial meal patient had blood glucose > 300. Patient was then placed on 10 units TIDWM with High Dose SS SQ insulin protocol. Patient also given 2 Liters of LR today. Electrolytes being followed. Qualifiers: Diabetes mellitus type: type 1 Diabetes mellitus complication detail: with coma Qualified Code(s): E10.11 - Type 1 diabetes mellitus with ketoacidosis with coma History of Present Illness Consult date: 04/05/17 Requesting physician: Tod Beltre Reason for consult: other (DKA) Chief complaint: DKA History of present illness: Ms. Black is a 21F with PMHx of DM type 1, DKA with recent discharge 9 days ago transferred from [facility] where she was brought in by EMS for evaluation of unresponsiveness. She has Hx of N/V since 11PM Wednesday night. She was treated for DKA given IV fluids + insulin and tranferred to ICU. She was DCd 9 days ago from [facility] for DKA. Past Med Surg Social Fam HX - Past Medical History Medical history: diabetes, other Psychiatric history: ADHD, bipolar - Past Surgical History Surgical History: no surgical history - Social History Smoking Status: Never smoker Smokeless Tobacco Status: No Alcohol use: none Drug use: none - Family History Father Family Member Ethnicity: Non- Living Status: Still Living Hx Family Cardiac Disorders: Yes Hx Family Respiratory Disorders: Yes Hx Family Cancer: Yes Mother Family Member Ethnicity: Non- Living Status: Still Living Hx Family Cardiac Disorders: Yes (HTN) Hx Family Respiratory Disorders: Yes (Asthma) Hx Family Cancer: Yes Hx Family Endocrine Disorder: Yes Brother Family Member Ethnicity: Non- Living Status: Still Living Hx Family Respiratory Disorders: Yes (Asthma) Sister Family Member Ethnicity: Non- Living Status: Still Living Hx Family Respiratory Disorders: Yes (asthma) Medications and Allergies Glucagon,Human Recombinant [Glucagon Emergency Kit] 1 mg IM AD PRN 04/05/17 [ History] Insulin ASPART [Novolog Flexpen] 0 units SQ AD PRN 04/05/17 [History] Insulin Glargine,Hum.rec.anlog [Lantus Solostar] 30 unit SQ QAM 04/05/17 [ History] Sertraline [Zoloft] 25 mg PO DAILY 04/05/17 [History] 3 Allergy/AdvReac Type Severity Reaction Status Date / Time surgical tape Allergy Redness of Uncoded 09/26/16 01:35 Skin All Systems: A 10-system review of systems was performed and is negative for pertinent findings except as documented above in the HPI. - Constitutional Constitutional: no fever(s), no headache(s), no weakness - EENT Eyes: no loss of vision Ears: as per HPI Nose, mouth and throat: as per HPI - Cardiovascular Cardiovascular: as per HPI, no chest pain, no dyspnea - Respiratory Respiratory: no cough, no dyspnea, no dyspnea on exertion, no wheezing, no chest congestion, no excessive phlegm production - Gastrointestinal Gastrointestinal: nausea, vomiting, no abdominal pain, no diarrhea - Genitourinary Genitourinary: as per HPI, no dysuria - Musculoskeletal Musculoskeletal: no joint pain, no weakness, no myalgias - Integumentary Integumentary: as per HPI, no erythema, no rash - Neurological Neurological: as per HPI - Psychiatric Psychiatric: as per HPI - Endocrine Endocrine: polydipsia - Hematologic/Lymphatic Hematologic/Lymphatic: as per HPI - Allergic/Immunologic Allergic/Immunologic: as per HPI Physical Examination Vital Signs: Vital Signs, Last 4 Hours Temp Pulse Resp BP Pulse Ox 04/05/17 13:00 122 16 108/75 100 04/05/17 12:00 117 14 119/78 100 04/05/17 11:40 98.1 F General appearance: no acute distress, alert Eyes: nonicteric ENT: oropharynx dry Neck: supple Effort: normal Inspection: normal Auscultation: bilateral: clear Cardiovascular: regular rate and rhythm Gastrointestinal: normoactive bowel sounds, soft, non-tender, non-distended Integumentary: normal Extremities: no cyanosis, no edema, pink and warm, pulses normal, no ischemia or petechiae Musculoskeletal: no deformities normal mental status, non-focal exam, pupils equal and round, CN II-XII normal, motor strength normal and symmetric other (Patient appears withdrawn and slow to answer questions. ) Results - Laboratory Findings CBC and BMP: 04/05/17 04:54 04/05/17 08:36 ABG ABG pH 7.12 pH Units (7.32-7.45) L* 04/04/17 17:07 ABG pCO2 14 mmHg (35-45) L* 04/04/17 17:07 ABG pO2 123 mmHg (85-104) H 04/04/17 17:07 ABG O2 Saturation 97 % (95-98) 04/04/17 17:07 Abnormal lab findings: Abnormal lab results RBC 3.68 M/mcL (3.82-4.97) L 04/05/17 04:54 Hgb 11.4 g/dL (11.5-15.4) L D 04/05/17 04:54 Hct 32.1 % (35.3-44.9) L 04/05/17 04:54 ABG pH 7.12 pH Units (7.32-7.45) L* 04/04/17 17:07 ABG pCO2 14 mmHg (35-45) L* 04/04/17 17:07 ABG pO2 123 mmHg (85-104) H 04/04/17 17:07 ABG HCO3 4 mEq/L (21-27) L 04/04/17 17:07 ABG Total CO2 5 mEq/L (20-26) L 04/04/17 17:07 ABG Base Excess -23 mEq/L (-2 to 3) L 04/04/17 17:07 Potassium 3.0 mEq/L (3.5-4.5) L 04/05/17 08:36 Chloride 116 mEq/L (98-109) H 04/05/17 08:36 Carbon Dioxide 11 mEq/L (19-29) L 04/05/17 08:36 BUN 6 mg/dL (7-20) L 04/05/17 08:36 Glucose 120 mg/dL (70-99) H 04/05/17 08:36 POC Glucose 113 (58-89) H 04/05/17 00:52 Calcium 7.5 mg/dL (8.6-10.8) L 04/05/17 08:36 Ionized Calcium 0.95 mmol/L (1.15-1.35) L 04/05/17 08:36 Phosphorus 1.2 mg/dL (2.3-4.7) L 04/05/17 08:36 Serum Total Protein 5.2 g/dL (6.0-8.3) L D 04/05/17 04:54 Albumin 2.8 g/dL (3.5-5.0) L D 04/05/17 04:54 - Clinical Findings Intake & Output: Intake & Output 04/04/17 04/05/17 04/05/17 23:59 07:59 15:59 Intake Total 2315.6 / 2315.6 2200 / 2200 300 / 300 Output Total 300 / 300 1500 / 1500 2100 / 2100 Balance 2014.2014.6 700 / 700 -1800 / -1800 Weight 56.4 kg Consult Discharge Plan - Plan Referrals: Jeb Smallwood, [employer]FFER [Primary Care Provider] - <Kayce Richter - Last Filed: 04/05/17 21:08> Date of Encounter: 04/05/17 All Systems: A 10-system review of systems was performed and is negative for pertinent findings except as documented above in the HPI. Physical Examination Vital Signs: Vital Signs, Last 4 Hours Pulse Resp BP Pulse Ox 04/05/17 15:00 98 16 98/67 100 04/05/17 14:00 105 20 105/64 100 Results - Laboratory Findings CBC and BMP: 04/05/17 04:54 04/05/17 16:35 ABG ABG pH 7.12 pH Units (7.32-7.45) L* 04/04/17 17:07 ABG pCO2 14 mmHg (35-45) L* 04/04/17 17:07 ABG pO2 123 mmHg (85-104) H 04/04/17 17:07 ABG O2 Saturation 97 % (95-98) 04/04/17 17:07 Abnormal lab findings: Abnormal lab results RBC 3.68 M/mcL (3.82-4.97) L 04/05/17 04:54 Hgb 11.4 g/dL (11.5-15.4) L D 04/05/17 04:54 Hct 32.1 % (35.3-44.9) L 04/05/17 04:54 ABG pH 7.12 pH Units (7.32-7.45) L* 04/04/17 17:07 ABG pCO2 14 mmHg (35-45) L* 04/04/17 17:07 ABG pO2 123 mmHg (85-104) H 04/04/17 17:07 ABG HCO3 4 mEq/L (21-27) L 04/04/17 17:07 ABG Total CO2 5 mEq/L (20-26) L 04/04/17 17:07 ABG Base Excess -23 mEq/L (-2 to 3) L 04/04/17 17:07 Potassium 2.7 mEq/L (3.5-4.5) L 04/05/17 16:35 Carbon Dioxide 15 mEq/L (19-29) L 04/05/17 16:35 BUN 5 mg/dL (7-20) L 04/05/17 16:35 Glucose 285 mg/dL (70-99) H 04/05/17 16:35 POC Glucose 113 (58-89) H 04/05/17 00:52 Calcium 7.9 mg/dL (8.6-10.8) L 04/05/17 16:35 Ionized Calcium 1.10 mmol/L (1.15-1.35) L 04/05/17 16:35 Phosphorus 1.2 mg/dL (2.3-4.7) L 04/05/17 16:35 Magnesium 1.4 mg/dL (1.7-2.2) L 04/05/17 16:35 Serum Total Protein 5.2 g/dL (6.0-8.3) L D 04/05/17 04:54 Albumin 2.8 g/dL (3.5-5.0) L D 04/05/17 04:54 - Clinical Findings Intake & Output: Intake & Output 04/05/17 04/05/17 04/05/17 07:59 15:59 23:59 Intake Total 2200 / 2200 300 / 300 Output Total 1500 / 1500 2100 / 2100 Balance 700 / 700 -1800 / -1800 Weight 56.4 kg - Attending Attestation I saw the patient with the resident agree with History and Physical exam findings. Labs and Radiology were reviewed CONTRACTOR GENERAL BUILDING: Patient is conscious oriented x3 following commands NECK : No JVD appreciated Pulmonary : Patient had adequate gas exchange Cardiac : Hemodynamically stable volume depleted Nutrition/GI: Patient anion gap x 2 will start on basal lnsulin , supplemental short acting and Insulin sliding scale Renal : Patient is on electrolytes protocol renal labs reviewed Heme onc : No acute issues Endo: Diabetes on insulin Musculo skeletal / skin issues no acute issues ID :No underlying infectious issues Disposition : This is the second admission within 1 month looks like she is not compliant with insulin not able to make it to the appointment , patient will be a candidate for insulin pump tried to contact endocrine for inpatient consult could not able to contact , trying to contact diabetic theater education teacher.Will transfer to the floor . Code status: Full Code Family/POA: Father
[2017-04-05 16:57] LABS: BUN/Creatinine Ratio 7 (6-26); Calcium 7.9 mg/dL (8.6-10.8); Carbon Dioxide 15 mEq/L (19-29); Chloride 109 mEq/L (98-109); Glucose 285 mg/dL (70-99); Magnesium 1.4 mg/dL (1.7-2.2); Osmolality,Calculated 290 (280-300); Phosphorous 1.2 mg/dL (2.3-4.7); Potassium 2.7 mEq/L (3.5-4.5); Sodium 136 mEq/L (136-145); eGFR For African Americans > 60; eGFR For Non-African Americans > 60
[2017-04-05 17:02] LABS: Blood Urea Nitrogen 5 mg/dL (7-20)
[2017-04-05] MEDS: Insulin LISPRO 300 UNITS/3 ML VIAL SQ SCH ×2 (18:21→18:22)
[2017-04-06 04:15] LABS: Basophils % 0.6 %; Eosinophils % 0.4 %; Immature Granulocytes % 0.2 % (0-4); Lymphocytes # 2.7 K/mcL (0.6-4.6); Lymphocytes % 55.7 %; Mean Corpuscular HGB Conc 36.4 g/dL (31.6-35.5); Mean Corpuscular Hemoglobin 31.3 pg (28.0-33.3); Mean Corpuscular Volume 86.2 fL (83.0-100.0); Mean Platelet Volume 9.9 fL (9.4-12.4); Monocytes # 0.3 K/mcL (0.0-1.3); Monocytes % 5.4 %; Neutrophils # 1.8 K/mcL (1.6-8.9); Platelet Count 165 K/mcL (140-400); Red Blood Count 3.83 M/mcL (3.82-4.97); Segmented Neutrophils % 37.7 %
[2017-04-06 04:32] LABS: BUN/Creatinine Ratio 10 (6-26); Blood Urea Nitrogen 7 mg/dL (7-20); Calcium 8.7 mg/dL (8.6-10.8); Carbon Dioxide 28 mEq/L (19-29); Chloride 103 mEq/L (98-109); Glucose 294 mg/dL (70-99); Ionized Calcium 1.12 mmol/L (1.15-1.35); Magnesium 1.4 mg/dL (1.7-2.2); Osmolality,Calculated 297 (280-300); Potassium 3.1 mEq/L (3.5-4.5); Sodium 139 mEq/L (136-145); eGFR For African Americans > 60; eGFR For Non-African Americans > 60
[2017-04-06] MEDS: Famotidine 20 MG/2 ML VIAL IVP SCH (05:51)
[2017-04-06] MEDS ORDERED: Magnesium Sulfate 2 GM in D5% in Water 100 ML IVPB PRN ×2 (07:31→18:43)
[2017-04-06] MEDS ORDERED: Potassium Chloride Elixir 20 MEQ/15 ML UDC PO ONE (07:48)
[2017-04-06] MEDS: Insulin LISPRO 300 UNITS/3 ML VIAL SQ SCH ×7 (08:08→18:40)
[2017-04-06] MEDS: *HR* Heparin 5,000 UNIT/ML VIAL SQ SCH ×3 (09:06→23:09)
[2017-04-06] MEDS: Insulin DETEMIR 100 UNIT/ML X5UNITS SQ SCH ×2 (09:09→09:20)
[2017-04-06 12:54] LABS: BUN/Creatinine Ratio 12 (6-26); Blood Urea Nitrogen 7 mg/dL (7-20); Carbon Dioxide 27 mEq/L (19-29); Chloride 106 mEq/L (98-109); Glucose 103 mg/dL (70-99); Magnesium 2.2 mg/dL (1.7-2.2); Osmolality,Calculated 286 (280-300); Phosphorous 1.6 mg/dL (2.3-4.7); Potassium 4.1 mEq/L (3.5-4.5); Sodium 139 mEq/L (136-145); eGFR For African Americans > 60; eGFR For Non-African Americans > 60
--- NOTE | 2017-04-06 14:57 | Pulmonology Progress Note ---
<Stan Lafleur - Last Filed: 04/06/17 14:54> Date of Encounter: 04/06/17 Time of Encounter: 14:54 Assessment and Plan (1) DKA (diabetic ketoacidoses) Current Visit: No Status: Resolved Resolved Patient started on insulin regimen yesterday. Glucose overnight was 100-300. Increased basal insulin to 30 units qAM. Increased TIDWM to 15 units. Patient also on High Dose SS SQ insulin protocol. Patient to receive education from diesel stationary engineer today. Social work following patient Qualifiers: Diabetes mellitus type: type 1 Diabetes mellitus complication detail: with coma Qualified Code(s): E10.11 - Type 1 diabetes mellitus with ketoacidosis with coma (2) Electrolyte abnormality Current Visit: No Status: Acute Patient's electrolytes are being monitored and replaced as needed. Patient has a low phosphorus which is 1.6 and being replaced at this time. (3) H/O noncompliance with medical treatment, presenting hazards to health Current Visit: No Status: Chronic Patient was recently discharged on the 03/29/17 for DKA admission. Patient states she is compliant with home medications, however she does not make her endocrinology appointments. Patient states this is due to father have not enough gas money. Patient is being followed by social work and to be receiving diabetes education today. (4) DVT prophylaxis Current Visit: No Status: Acute Patient keeps refusing DVT prophylaxis. Subjective Principal diagnosis: DKA Interval history: Ms. Black is a 21F with PMHx of DM type 1, DKA with recent discharge 9 days ago transferred from [facility] where she was brought in by EMS for evaluation of unresponsiveness. She has Hx of N/V since 11PM Wednesday night. She was treated for DKA given IV fluids + insulin and tranferred to ICU. She was DCd 9 days ago from [facility] for DKA. Patient was restarted on her insulin regimen. Blood glucose closely monitored. Patient to receive DM education by educator today. Will transfer to step[facility] bed. Patient also in discussion with about transportation for her appointments, which is covered by her insurance. Objective PUL Vital signs: Last Vital Signs Temp 98.3 F 04/06/17 11:42 Pulse 95 04/06/17 13:00 Resp 14 04/06/17 13:00 BP 124/76 04/06/17 13:00 Pulse Ox 100 04/06/17 13:00 General appearance: no acute distress Eyes: nonicteric ENT: oropharynx moist Neck: supple Effort: normal Auscultation: bilateral: clear Cardiovascular: regular rate and rhythm Gastrointestinal: normoactive bowel sounds, soft, non-tender Integumentary: normal Extremities: no cyanosis, no edema, no clubbing, pink and warm Musculoskeletal: no deformities normal mental status, non-focal exam, pupils equal and round, CN II-XII normal mood appropriate, affect normal Results - Laboratory Findings CBC and BMP: 04/06/17 04:07 04/06/17 12:00 ABG ABG pH 7.12 pH Units (7.32-7.45) L* 04/04/17 17:07 ABG pCO2 14 mmHg (35-45) L* 04/04/17 17:07 ABG pO2 123 mmHg (85-104) H 04/04/17 17:07 ABG O2 Saturation 97 % (95-98) 04/04/17 17:07 Abnormal lab findings: Abnormal lab results Hct 33.0 % (35.3-44.9) L 04/06/17 04:07 MCHC 36.4 g/dL (31.6-35.5) H 04/06/17 04:07 ABG pH 7.12 pH Units (7.32-7.45) L* 04/04/17 17:07 ABG pCO2 14 mmHg (35-45) L* 04/04/17 17:07 ABG pO2 123 mmHg (85-104) H 04/04/17 17:07 ABG HCO3 4 mEq/L (21-27) L 04/04/17 17:07 ABG Total CO2 5 mEq/L (20-26) L 04/04/17 17:07 ABG Base Excess -23 mEq/L (-2 to 3) L 04/04/17 17:07 Glucose 103 mg/dL (70-99) H 04/06/17 12:00 Ionized Calcium 1.12 mmol/L (1.15-1.35) L 04/06/17 04:07 Phosphorus 1.6 mg/dL (2.3-4.7) L 04/06/17 12:00 Serum Total Protein 5.2 g/dL (6.0-8.3) L D 04/05/17 04:54 Albumin 2.8 g/dL (3.5-5.0) L D 04/05/17 04:54 - Clinical Findings Intake & Output: Intake & Output 04/05/17 04/06/17 04/06/17 23:59 07:59 15:59 Intake Total 2400 / 2400 240 / 240 1000 / 1000 Output Total 2000 / 2000 1500 / 1500 1000 / 1000 Balance 400 / 400 -1260 / -1260 0 / 0 Weight 59.1 kg Consult Discharge Plan - Plan Referrals: Jeb Smallwood, STOREHOUSE CLERK [Primary Care Provider] - <Kayce Richter - Last Filed: 04/06/17 16:23> Date of Encounter: 04/06/17 Objective PUL Vital signs: Last Vital Signs Temp 98.3 F 04/06/17 11:42 Pulse 101 04/06/17 15:00 Resp 18 04/06/17 15:00 BP 115/80 04/06/17 15:00 Pulse Ox 99 04/06/17 15:00 Results - Laboratory Findings CBC and BMP: 04/06/17 04:07 04/06/17 12:00 ABG ABG pH 7.12 pH Units (7.32-7.45) L* 04/04/17 17:07 ABG pCO2 14 mmHg (35-45) L* 04/04/17 17:07 ABG pO2 123 mmHg (85-104) H 04/04/17 17:07 ABG O2 Saturation 97 % (95-98) 04/04/17 17:07 Abnormal lab findings: Abnormal lab results Hct 33.0 % (35.3-44.9) L 04/06/17 04:07 MCHC 36.4 g/dL (31.6-35.5) H 04/06/17 04:07 ABG pH 7.12 pH Units (7.32-7.45) L* 04/04/17 17:07 ABG pCO2 14 mmHg (35-45) L* 04/04/17 17:07 ABG pO2 123 mmHg (85-104) H 04/04/17 17:07 ABG HCO3 4 mEq/L (21-27) L 04/04/17 17:07 ABG Total CO2 5 mEq/L (20-26) L 04/04/17 17:07 ABG Base Excess -23 mEq/L (-2 to 3) L 04/04/17 17:07 Glucose 103 mg/dL (70-99) H 04/06/17 12:00 Ionized Calcium 1.12 mmol/L (1.15-1.35) L 04/06/17 04:07 Phosphorus 1.6 mg/dL (2.3-4.7) L 04/06/17 12:00 Serum Total Protein 5.2 g/dL (6.0-8.3) L D 04/05/17 04:54 Albumin 2.8 g/dL (3.5-5.0) L D 04/05/17 04:54 - Clinical Findings Intake & Output: Intake & Output 04/06/17 04/06/17 04/06/17 07:59 15:59 23:59 Intake Total 240 / 240 1000 / 1000 Output Total 1500 / 1500 1000 / 1000 Balance -1260 / -1260 0 / 0 - Attending Attestation I saw the patient with the resident agree with History and Physical exam findings. Labs and Radiology were reviewed SOCIALLY RESPONSIBLE INVESTMENT ADVISER: Patient is conscious oriented x3 following commands NECK : No JVD appreciated Pulmonary : Patient had adequate gas exchange Cardiac : Hemodynamically stable Nutrition/GI: Patient is on regular diet Blood glucose is not optimally controlled will need increase in the dose of insulin regimen. Renal : Patient is on electrolytes protocol renal labs reviewed Heme onc : No acute issues Endo: Diabetes on insulin increase the basal dose and supplemental dose Musculo skeletal / skin issues no acute issues ID :No underlying infectious issues Disposition : This is the second admission within 1 month looks like she is not compliant with insulin not able to make it to the appointment , patient will be a candidate for insulin pump will need outpatient follow up needs to help with transportation to coordinate with social work . bi specialist to come and help. Transfer to the floor Code status: Full Code Family/POA: Father
--- NOTE | 2017-04-06 17:34 | Event Note ---
Date of Encounter: 04/06/17 Time of Encounter: 17:33 Discussed the patient case with Dewayne DRYWALL FOREMAN with the admitting hospitalist and they accept.
[2017-04-06] MEDS ORDERED: Naloxone 0.4 MG/ML INJ IVP PRN (18:43)
[2017-04-06] MEDS ORDERED: *HR* Dextrose 50 % in Water (Syg) 50 ML SYRINGE IVP PRN (18:43)
[2017-04-06] MEDS ORDERED: D5% in Water 1,000 ML IVC PRN (18:43)
[2017-04-06] MEDS ORDERED: Dextrose Gel 15 GM PO PRN ×2 (18:43)
[2017-04-06] MEDS ORDERED: Calcium Gluconate 1,000 MG in D5% in Water 100 ML IVPB PRN (18:43)
[2017-04-06] MEDS: 0.45 % Sodium Chloride w/KCl 20 MEQ/1,000 ML MLS IVC SCH (19:30)
[2017-04-06] MEDS ORDERED: Insulin LISPRO 300 UNITS/3 ML VIAL SQ SCH (21:00)
[2017-04-07 04:55] LABS: BUN/Creatinine Ratio 26 (6-26); Blood Urea Nitrogen 14 mg/dL (7-20); Calcium 8.6 mg/dL (8.6-10.8); Carbon Dioxide 28 mEq/L (19-29); Chloride 104 mEq/L (98-109); Glucose 179 mg/dL (70-99); Osmolality,Calculated 295 (280-300); Potassium 3.9 mEq/L (3.5-4.5); Sodium 140 mEq/L (136-145); eGFR For African Americans > 60; eGFR For Non-African Americans > 60
[2017-04-07 04:56] LABS: Phosphorous 4.5 mg/dL (2.3-4.7)
[2017-04-07] MEDS ORDERED: Insulin LISPRO 300 UNITS/3 ML VIAL SQ SCH ×2 (07:30→08:00)
[2017-04-07] MEDS: *HR* Heparin 5,000 UNIT/ML VIAL SQ SCH (08:34)
[2017-04-07] MEDS ORDERED: Insulin DETEMIR 100 UNIT/ML X5UNITS SQ SCH (09:00)
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
[2017-04-07 12:26] VITALS: BP 114/72
== END 2017-04-07 12:27 | disposition home or self-care (01) | DRG 420 ==
LOC: SUATTDRO 15:02 → ICNU 15:02
PROVIDERS: ADMIT Internal Medicine; ATTEND Internal Medicine

== ENCOUNTER 2017-09-10 17:45 | Inpatient (IN) ==
[2017-09-10] MEDS ORDERED: D5% in 0.45% NACL w KCl 20 MEQ/1,000 ML MLS IVC ONE (21:31)
[2017-09-10] MEDS ORDERED: *HR* Dextrose 50 % in Water (Syg) 50 ML SYRINGE IVP PRN (21:34)
[2017-09-10] MEDS ORDERED: Insulin Regular, Human 100 UNIT/ML IV PRN (21:34)
[2017-09-10] MEDS ORDERED: Naloxone 0.4 MG/ML INJ IVP PRN (21:34)
--- NOTE | 2017-09-10 21:38 | Internal Med History&Physical ---
<Nigel Brandt - Last Filed: 09/10/17 22:41> Date of Encounter: 09/10/17 Time of Encounter: 21:37 Assessment and Plan (1) DKA (diabetic ketoacidoses) Current visit: No Status: Acute glucose 495 on arrival with positive serum ketones and venous pH 6.97, bicarb 3 supporting diagnosis of severe metabolic acidosis requiring INTENSIVE CARE UNIT admission - patient was given insulin bolus and started on drip 0.1 U/kg/hr, also given Bicarb at OSH DKA protocol initiated likely secondary to noncompliance, patient admits to not taking inuslin today - reports of nausea no vomiting or fevers, lipase wnl, do not suspect infectious source at this time, urinalysis normal, negative - abdomen is nontender, nondistended patient's POC Glucose on arrival 206, will begin D5 1/2 NS at 250 cc/hr per DKA protocol - initial K+ at 4, will add 20 mEq accucheck q1h VBG and BMP repeat Qualifiers: Diabetes mellitus type: type 1 Diabetes mellitus complication detail: without coma Qualified Code(s): E10.10 - Type 1 diabetes mellitus with ketoacidosis without coma (2) Type 1 diabetes mellitus with ketoacidosis, uncontrolled Current visit: Yes Status: Acute multiple admissions for DKA patient's family at bedside with insulin pump which she recently received but has not installed check [id number] Qualifiers: Diabetes mellitus complication detail: without coma Qualified Code(s): E10.10 - Type 1 diabetes mellitus with ketoacidosis without coma (3) Metabolic acidosis Current visit: Yes Status: Acute anion gap of 27 likely secondary to DKA lactate 1.1 will continue to treat under DKA protocol and monitor in ICU (4) DVT prophylaxis Current visit: No Status: Acute inpatient status heparin Internal Medicine - H&P: HPI Chief complaint: DKA Admitted From: Emergency Dept ([facility]) Plans for Post Hospital Care: Home History of present illness: Ms. Black is a 21 year old female history of type I diabetes mellitus, uncontrolled initially presented to [facility] emergency department for elevated glucose. She was found to be in diabetic ketoacidosis. She admits to not taking her insulin earlier today she felt nauseated. States around 1500 she took her glucose which was greater than 500. States she has been very tired and has slept all day. She does report to drinking some apple juice at a local restaurant which made her feel low nauseated. She denies any recent illness. She denies any cough, abdominal pain, vomiting, diarrhea. Denies any recent travel. She has significant history of DKA and noncompliance with her insulin. Her family is at bedside and states she was recently prescribed a insulin pump which has not been installed to help with her glucose control. She has been diabetic for past 3 years. She sees geospatial image analyst with a scheduled appointment within the month. At the emergency department her glucose was for 95. A venous blood gas was drawn and shows acidotic 6.97 with a CO2 of 17 and a bicarb of 4. Her potassium is for. Anionic gap 27. She was immediately given to liter normal saline bolus and placed on insulin drip without bolus. She was also given bicarb. On arrival here to the intensive care unit at [facility] her glucose was found to be 206. She is awake alert and oriented to person place and time. She has no neurologic deficits. She is answering questions appropriately. She will be initiated on the DKA protocol. Past Med Surg Social Fam HX - Past Medical History Attestation: Yes The following information was validated with the patient. Source: patient, old records reviewed Medical history: diabetes, other Psychiatric history: ADHD, bipolar - Past Surgical History Surgical History: no surgical history - Social History Smoking Status: Never smoker Smokeless Tobacco Status: No Alcohol use: none Drug use: none - Family History Father Family Member Ethnicity: Non- Living Status: Still Living Hx Family Cardiac Disorders: Yes Hx Family Respiratory Disorders: Yes Hx Family Cancer: Yes Mother Family Member Ethnicity: Non- Living Status: Still Living Hx Family Cardiac Disorders: Yes (HTN) Hx Family Respiratory Disorders: Yes (Asthma) Hx Family Cancer: Yes Hx Family Endocrine Disorder: Yes Brother Family Member Ethnicity: Non- Living Status: Still Living Hx Family Respiratory Disorders: Yes (Asthma) Sister Family Member Ethnicity: Non- Living Status: Still Living Hx Family Respiratory Disorders: Yes (asthma) Internal Medicine - H&P: Meds Glucagon,Human Recombinant [Glucagon Emergency Kit] 1 mg IM AD PRN 04/05/17 [ History] Sertraline [Zoloft] 25 mg PO DAILY 04/05/17 [History] Alcohol Antiseptic Pads [Alcohol Pads] 1 each TP ACHS #150 med..pad 04/07/17 [Rx ] Insulin ASPART [Novolog Flexpen] 10 unit SQ TIDWM #15 insuln.pen 04/07/17 [Rx] Insulin Glargine,Hum.rec.anlog [Lantus Solostar] 50 unit SQ DAILY #15 ml [Rx] Lancets/Blood Glucose Strips [Fora [id number] Strp-Lnct] 1 each ACHS # 150 combo..pkg 04/07/17 [Rx] Pen Needle, Diabetic [Pen [place]] 1 each ACHS #150 dis.needle 04/07/17 [Rx] 3 Allergy/AdvReac Type Severity Reaction Status Date / Time surgical tape Allergy Redness of Uncoded 07/07/17 20:11 Skin All Systems PM: A 10-system review of systems was performed and is negative for pertinent findings except as documented above in the HPI. - Constitutional Constitutional: no chills, no fever(s), no night sweats, no weakness - EENT Eyes: no change in vision, no diplopia - Cardiovascular Cardiovascular ROS IM: no chest pain, no dyspnea, no dyspnea on exertion, no lightheadedness - Respiratory Respiratory: no cough, no dyspnea, no chest congestion - Gastrointestinal Gastrointestinal: nausea, no abdominal pain, no cramping, no diarrhea, no hematemesis, no loose stools, no melena, no vomiting - Integumentary Integumentary IM: no new lesions, no rash - Constitutional Vitals: Temp Pulse Resp BP Pulse Ox 97.8 F 128 22 113/103 100 09/10/17 21:15 09/10/17 21:15 09/10/17 21:15 09/10/17 21:15 09/10/17 21:15 General appearance: Present: A&O X 3, no acute distress, answers questions appropriately - Head Head exam: Present: atraumatic, normal inspection, normocephalic - Eye Eye exam: Present: EOMI, normal appearance, PERRL. Absent: nystagmus - ENT ENT exam: Present: mucous membranes dry - Neck Neck exam general surgery: Present: full ROM, normal inspection, supple, trachea midline - Respiratory Respiratory exam: Present: CTAB, respiratory distress (TACHYPNEIC, NOT KUSSMAUL) . Absent: accessory muscle use, chest wall tenderness, decreased breath sounds , prolonged expiratory phase - Cardiovascular Cardiovascular exam: Present: RRR, +S1, +S2, tachycardia. Absent: systolic murmur - GI/Abdominal GI/Abdominal exam: Present: normal bowel sounds, soft, no peritoneal signs. Absent: distended, firm, guarding, rebound, rigid, tenderness - Extremities Exam Extremities exam: Present: full ROM, normal inspection, radial pulses palpable and symmetrical. Absent: pedal edema - Neurological Exam Neurological exam: Present: alert, CN II-XII intact, oriented X3, no focal deficits, strengths equal and symetr throughout. Absent: motor sensory deficit - Psychiatric Psychiatric exam: Present: normal affect, normal mood - Skin Skin exam: Present: diaphoretic (mildly), normal color. Absent: cyanosis, erythema <Saran Jones - Last Filed: 09/10/17 23:08> Date of Encounter: 09/10/17 Internal Medicine - H&P: HPI History of present illness: Ms. Black is a 21 year old female All Systems PM: A 10-system review of systems was performed and is negative for pertinent findings except as documented above in the HPI. - Constitutional Vitals: Temp Pulse Resp BP Pulse Ox 97.8 F 125 16 117/77 100 09/10/17 21:15 09/10/17 22:04 09/10/17 22:04 09/10/17 22:04 09/10/17 22:04 Internal Med - H&P Results - Labs CBC & Chem 7: 09/10/17 22:03 Labs: BMP 09/10/17 22:03 Sodium 141 D Potassium 3.9 Chloride 115 H Carbon Dioxide 5 L* BUN 12 Creatinine 0.71 Glucose 203 H Calcium 7.9 L - ABG Interpretation ABG results: 09/10/17 22:17 VBG pH 6.93 L* VBG pCO2 25 L VBG pO2 209 H VBG HCO3 5 L
[2017-09-10] MEDS ORDERED: Insulin Human Regular 100 UNIT in 0.9 % Sodium Chloride 100 ML IVC SCH (21:45)
[2017-09-10 22:28] LABS: VBG HCO3 5 mEq/L (21-27); VBG PCO2 25 mmHg (41-51); VBG PH 6.93 pH Units (7.32-7.42); VBG PO2 209 mmHg (25-50)
[2017-09-10] MEDS ORDERED: Ondansetron 4 MG/2 ML VIAL IVP PRN (22:40)
[2017-09-10 22:58] LABS: BUN/Creatinine Ratio 17 (6-26); Blood Urea Nitrogen 12 mg/dL (6-20); Calcium 7.9 mg/dL (8.6-10.3); Carbon Dioxide 5 mEq/L (23-29); Chloride 115 mEq/L (98-107); Glucose 203 mg/dL (70-105); Osmolality,Calculated 298 (280-300); Potassium 3.9 mEq/L (3.5-5.1); Sodium 141 mEq/L (136-145); eGFR For African Americans > 60; eGFR For Non-African Americans > 60
[2017-09-11 01:04] LABS: VBG HCO3 6 mEq/L (21-27); VBG PCO2 18 mmHg (41-51); VBG PH 7.11 pH Units (7.32-7.42); VBG PO2 213 mmHg (25-50)
[2017-09-11 01:15] LABS: BUN/Creatinine Ratio 15 (6-26); Blood Urea Nitrogen 10 mg/dL (6-20); Calcium 8.1 mg/dL (8.6-10.3); Carbon Dioxide 7 mEq/L (23-29); Chloride 119 mEq/L (98-107); Glucose 186 mg/dL (70-105); Osmolality,Calculated 300 (280-300); Potassium 3.7 mEq/L (3.5-5.1); Sodium 143 mEq/L (136-145); eGFR For African Americans > 60; eGFR For Non-African Americans > 60
[2017-09-11] MEDS: D5% in 0.45% NACL w KCl 20 MEQ/1,000 ML MLS IVC PRN ×4 (01:26→17:05)
[2017-09-11 03:15] LABS: BUN/Creatinine Ratio 16 (6-26); Blood Urea Nitrogen 10 mg/dL (6-20); Carbon Dioxide 8 mEq/L (23-29); Chloride 125 mEq/L (98-107); Glucose 157 mg/dL (70-105); Osmolality,Calculated 298 (280-300); Potassium 4.3 mEq/L (3.5-5.1); Sodium 143 mEq/L (136-145); eGFR For African Americans > 60; eGFR For Non-African Americans > 60
[2017-09-11] MEDS: *HR* Heparin 5,000 UNIT/ML VIAL SQ SCH ×2 (05:24→18:01)
[2017-09-11 05:44] LABS: BUN/Creatinine Ratio 17 (6-26); Blood Urea Nitrogen 9 mg/dL (6-20); Calcium 7.9 mg/dL (8.6-10.3); Carbon Dioxide 10 mEq/L (23-29); Chloride 123 mEq/L (98-107); Glucose 134 mg/dL (70-105); Osmolality,Calculated 291 (280-300); Potassium 3.8 mEq/L (3.5-5.1); Sodium 140 mEq/L (136-145); eGFR For African Americans > 60; eGFR For Non-African Americans > 60
[2017-09-11] MEDS ORDERED: Insulin DETEMIR 100 UNIT/ML X5UNITS SQ ONE (05:47)
[2017-09-11] MEDS: Pantoprazole 40 MG VIAL IVP SCH (08:47)
[2017-09-11 09:20] LABS: VBG HCO3 14 mEq/L (21-27); VBG PCO2 42 mmHg (41-51); VBG PH 7.13 pH Units (7.32-7.42); VBG PO2 33 mmHg (25-50)
[2017-09-11 09:23] LABS: Alanine Aminotransferase 7 Units/L (7-52); Albumin 3.4 g/dL (3.5-5.7); Albumin/Globulin Ratio 1.5 (1.1-2.2); Alkaline Phosphatase 78 Units/L (34-104); Aspartate Amino Transferase 8 Units/L (13-39); BUN/Creatinine Ratio 13 (6-26); Bilirubin,Total 0.3 mg/dL (0.3-1.0); Blood Urea Nitrogen 8 mg/dL (6-20); Calcium 7.4 mg/dL (8.6-10.3); Carbon Dioxide 15 mEq/L (23-29); Chloride 118 mEq/L (98-107); Globulin 2.2 g/dL (2.4-3.5); Glucose 214 mg/dL (70-105); Osmolality,Calculated 293 (280-300); Potassium 3.5 mEq/L (3.5-5.1); Sodium 139 mEq/L (136-145); Total Protein 5.6 g/dL (6.4-8.9); eGFR For African Americans > 60; eGFR For Non-African Americans > 60
[2017-09-11 13:02] LABS: VBG HCO3 14 mEq/L (21-27); VBG PCO2 43 mmHg (41-51); VBG PH 7.13 pH Units (7.32-7.42); VBG PO2 44 mmHg (25-50)
[2017-09-11 13:16] LABS: BUN/Creatinine Ratio 11 (6-26); Blood Urea Nitrogen 7 mg/dL (6-20); Calcium 8.3 mg/dL (8.6-10.3); Carbon Dioxide 14 mEq/L (23-29); Chloride 110 mEq/L (98-107); Glucose 203 mg/dL (70-105); Osmolality,Calculated 280 (280-300); Potassium 3.3 mEq/L (3.5-5.1); Sodium 133 mEq/L (136-145); eGFR For African Americans > 60; eGFR For Non-African Americans > 60
[2017-09-11 15:30] LABS: VBG HCO3 13 mEq/L (21-27); VBG PCO2 25 mmHg (41-51); VBG PH 7.31 pH Units (7.32-7.42); VBG PO2 205 mmHg (25-50)
[2017-09-11 15:57] LABS: BUN/Creatinine Ratio 12 (6-26); Blood Urea Nitrogen 5 mg/dL (6-20); Calcium 8.1 mg/dL (8.6-10.3); Carbon Dioxide 12 mEq/L (23-29); Chloride 115 mEq/L (98-107); Glucose 154 mg/dL (70-105); Osmolality,Calculated 278 (280-300); Potassium 3.1 mEq/L (3.5-5.1); Sodium 134 mEq/L (136-145); eGFR For African Americans > 60; eGFR For Non-African Americans > 60
[2017-09-11] MEDS ORDERED: *HR* Dextrose 50 % in Water (Syg) 50 ML SYRINGE IVP PRN (16:28)
[2017-09-11] MEDS ORDERED: Dextrose Gel 15 GM/37.5 ML TUBE PO PRN ×2 (16:28)
[2017-09-11] MEDS ORDERED: D5% in Water 1,000 ML IVC PRN (16:28)
[2017-09-11] MEDS: Insulin LISPRO 300 UNITS/3 ML VIAL SQ SCH ×2 (16:49→20:10)
[2017-09-11 17:59] LABS: VBG HCO3 12 mEq/L (21-27); VBG PCO2 21 mmHg (41-51); VBG PH 7.37 pH Units (7.32-7.42); VBG PO2 216 mmHg (25-50)
[2017-09-11 18:09] LABS: BUN/Creatinine Ratio 7 (6-26); Blood Urea Nitrogen 5 mg/dL (6-20); Calcium 8.1 mg/dL (8.6-10.3); Carbon Dioxide 13 mEq/L (23-29); Chloride 113 mEq/L (98-107); Glucose 250 mg/dL (70-105); Osmolality,Calculated 282 (280-300); Potassium 3.7 mEq/L (3.5-5.1); Sodium 133 mEq/L (136-145); eGFR For African Americans > 60; eGFR For Non-African Americans > 60
--- NOTE | 2017-09-11 18:32 | Internal Med Progress Note ---
Date of Encounter: 09/11/17 Time of Encounter: 08:50 - Subjective Interval history: HPI from H&P: "Ms. Black is a 21 year old female history of type I diabetes mellitus, uncontrolled initially presented to [place] emergency department for elevated glucose. She was found to be in diabetic ketoacidosis. She admits to not taking her insulin earlier today she felt nauseated. States around 1500 she took her glucose which was greater than 500. States she has been very tired and has slept all day. She does report to drinking some apple juice at a local restaurant which made her feel low nauseated. She denies any recent illness. She denies any cough, abdominal pain, vomiting, diarrhea. Denies any recent travel. She has significant history of DKA and noncompliance with her insulin. Her family is at bedside and states she was recently prescribed a insulin pump which has not been installed to help with her glucose control. She has been diabetic for past 3 years. She sees pantry cook with a scheduled appointment within the month. At the emergency department her glucose was for 95. A venous blood gas was drawn and shows acidotic 6.97 with a CO2 of 17 and a bicarb of 4. Her potassium is for. Anionic gap 27. She was immediately given to liter normal saline bolus and placed on insulin drip without bolus. She was also given bicarb. On arrival here to the intensive care unit at [facility] her glucose was found to be 206. She is awake alert and oriented to person place and time. She has no neurologic deficits. She is answering questions appropriately. She will be initiated on the DKA protocol." Interval history: By morning her AG had closed and the Insulin drip had been stopped. She's been off protocol since early am She had been given SQ long-acting insulin Throughout the day today her bicarb and pH levels have slowly increased. She has been on D0.45NS with 20mEq KCL/l at 250 ml per hour today until 18:30. AccuChecks are being taken qACHS and BMP q4 hrs. Her BG and K has increased so IVF were changed to NS at 2oo ml/hr. Diabetes education was ordered. A/P: DKA: -The DKA protocol was initially started -When the AG closed in early am Levemir was given and the drip stopped two hours later -D0.45NS with 20mEq KCL/l at 250 ml per hour was given -She's A&O x3 now with no signs of infection. -Serial BMP are still being obtained DM-I: Her family arrived with a personal insulin pump. She appears noncompliant with DM mgt including diet DM education ordered. Dehydration: Continue aggressive fluid resuscitation - Constitutional Vitals: Temp Pulse Resp BP Pulse Ox 97.2 F L 99 20 119/88 100 09/11/17 15:39 09/11/17 18:00 09/11/17 18:00 09/11/17 18:00 09/11/17 18:00 General appearance: Present: A&O X 3, no acute distress, answers questions appropriately - Head Head exam: Present: atraumatic, normocephalic - Eye Eye exam: Present: PERRL, conjuntiva pink, sclera anicteric Pupils: Present: PERRL - Neck Neck exam general surgery: Present: supple, trachea midline. Absent: lymphadenopathy - Respiratory Respiratory exam: Present: CTAB. Absent: accessory muscle use, rales, rhonchi, wheezes - Cardiovascular Cardiovascular exam: Present: RRR, +S1, +S2. Absent: diastolic murmur, gallop, rubs, systolic murmur - GI/Abdominal GI/Abdominal exam: Present: normal bowel sounds, soft, no peritoneal signs. Absent: distended, tenderness - Extremities Exam Extremities exam: Present: warm, radial pulses palpable and symmetrical. Absent : calf tenderness, cyanotic, pedal edema - Neurological Exam Neurological exam: Present: CN II-XII intact, oriented X3, no focal deficits. Absent: pronater drift, facial droop, speech deficit - Skin Skin exam: Present: dry, intact Internal Medicine: Result - Labs CBC & Chem 7: 09/11/17 17:43 Labs: BMP 09/10/17 09/11/17 09/11/17 22:03 00:35 02:49 Sodium 141 D 143 143 Potassium 3.9 3.7 4.3 Chloride 115 H 119 H 125 H Carbon Dioxide 5 L* 7 L* 8 L* BUN 12 10 10 Creatinine 0.71 0.68 0.61 Glucose 203 H 186 H 157 H Calcium 7.9 L 8.1 L 8.0 L 09/11/17 09/11/17 09/11/17 05:11 08:54 12:44 Sodium 140 139 133 L Potassium 3.8 3.5 3.3 L Chloride 123 H 118 H 110 H Carbon Dioxide 10 L* 15 L 14 L BUN 9 8 7 Creatinine 0.53 L 0.60 0.61 Glucose 134 H 214 H 203 H Calcium 7.9 L 7.4 L 8.3 L 09/11/17 09/11/17 15:15 17:43 Sodium 134 L 133 L Potassium 3.1 L 3.7 Chloride 115 H 113 H Carbon Dioxide 12 L 13 L BUN 5 L 5 L Creatinine 0.41 L 0.72 Glucose 154 H 250 H Calcium 8.1 L 8.1 L Liver Function 09/11/17 Range/Units 08:54 Total Bilirubin 0.3 (0.3-1.0) mg/dL AST 8 L (13-39) Units/L ALT 7 (7-52) Units/L Alkaline Phosphatase 78 (34-104) Units/L Albumin 3.4 L (3.5-5.7) g/dL Consult Discharge Plan - Plan Referrals: NONE,PCP [Primary Care Provider] -
[2017-09-11] MEDS: 0.9 % Sodium Chloride 1,000 ML IVC SCH ×2 (18:38→22:59)
[2017-09-12] MEDS: 0.9 % Sodium Chloride 1,000 ML IVC SCH ×4 (04:33→20:06)
[2017-09-12] MEDS: *HR* Heparin 5,000 UNIT/ML VIAL SQ SCH ×2 (04:35→18:19)
[2017-09-12] MEDS: Insulin LISPRO 300 UNITS/3 ML VIAL SQ SCH ×4 (07:57→20:07)
[2017-09-12 09:00] LABS: Blood Urea Nitrogen 12 mg/dL (6-20); Carbon Dioxide 18 mEq/L (23-29); Chloride 106 mEq/L (98-107); Glucose 438 mg/dL (70-105); Osmolality,Calculated 295 (280-300); Potassium 4.1 mEq/L (3.5-5.1); Sodium 133 mEq/L (136-145)
--- NOTE | 2017-09-12 09:03 | Internal Med Progress Note ---
Date of Encounter: 09/12/17 Time of Encounter: 08:05 - Subjective Interval history: HPI from H&P: The patient is a 21 year old woman with type I diabetes mellitus, uncontrolled initially presented to [place] emergency department for elevated glucose. She was found to be in diabetic ketoacidosis. She admits to not taking her insulin earlier today she felt nauseated. States around 1500 she took her glucose which was greater than 500. States she has been very tired and has slept all day. She does report to drinking some apple juice at a local restaurant which made her feel low nauseated. She denies any recent illness. She denies any cough, abdominal pain, vomiting, diarrhea. Denies any recent travel. She has significant history of DKA and noncompliance with her insulin. Her family is at bedside and states she was recently prescribed a insulin pump which has not been installed to help with her glucose control. She has been diabetic for past 3 years. She sees junior financial analyst with a scheduled appointment within the month. At the emergency department her glucose was for 95. A venous blood gas was drawn and shows acidotic 6.97 with a CO2 of 17 and a bicarb of 4. Her potassium is for. Anionic gap 27. She was immediately given to liter normal saline bolus and placed on insulin drip without bolus. She was also given bicarb. On arrival here to the intensive care unit at [facility] her glucose was found to be 206. She is awake alert and oriented to person place and time. She has no neurologic deficits. She is answering questions appropriately. She will be initiated on the DKA protocol." Interval history: 09/11/2017: By morning her AG had closed and the Insulin drip had been stopped. She's been off protocol since early am She had been given SQ long-acting insulin Throughout the day today her bicarb and pH levels have slowly increased. She has been on D0.45NS with 20mEq KCL/l at 250 ml per hour today until 18:30. AccuChecks are being taken qACHS and BMP q4 hrs. Her BG and K has increased so IVF were changed to NS at 2oo ml/hr. Diabetes education was ordered. 09/12/2017: Ph back to normal but HCO3 still low (13 ) Blood sample this am is hemolysed. Waiting for repeat labs She's been on NS at 200 ml/hr overnight A/P: DKA: 09/11/2017: -The DKA protocol was initially started -When the AG closed in early am Levemir was given and the drip stopped two hours later -D0.45NS with 20mEq KCL/l at 250 ml per hour was given -She's A&O x3 now with no signs of infection. -Serial BMP are still being obtained 09/12/2017: Continue NS at 200 ml/hr, DM-I: Her family arrived with a personal insulin pump. She appears noncompliant with DM mgt including diet DM education ordered. Dehydration: Continue aggressive fluid resuscitation - Constitutional Vitals: Temp Pulse Resp BP Pulse Ox 98.0 F 87 18 134/85 99 09/12/17 08:15 09/12/17 08:00 09/12/17 08:00 09/12/17 08:00 09/12/17 08:00 General appearance: Present: cooperative, A&O X 3, pleasant, no acute distress, answers questions appropriately - Head Head exam: Present: atraumatic, normocephalic - Eye Eye exam: Present: EOMI, PERRL, conjuntiva pink, sclera anicteric Pupils: Present: PERRL - Neck Neck exam general surgery: Present: supple, trachea midline. Absent: lymphadenopathy - Respiratory Respiratory exam: Present: CTAB. Absent: accessory muscle use, rales, rhonchi, wheezes - Cardiovascular Cardiovascular exam: Present: RRR, +S1, +S2. Absent: diastolic murmur, gallop, rubs, systolic murmur - GI/Abdominal GI/Abdominal exam: Present: normal bowel sounds, soft, no peritoneal signs. Absent: distended, tenderness - Extremities Exam Extremities exam: Present: warm, radial pulses palpable and symmetrical. Absent : calf tenderness, cyanotic, pedal edema - Neurological Exam Neurological exam: Present: CN II-XII intact, oriented X3, no focal deficits. Absent: pronater drift, facial droop, speech deficit - Psychiatric Psychiatric exam: Present: normal affect, normal mood - Skin Skin exam: Present: dry, intact, warm Internal Medicine: Result - Labs CBC & Chem 7: 09/12/17 09:33 09/12/17 08:26 Labs: BMP 09/11/17 09/11/17 09/11/17 08:54 12:44 15:15 Sodium 139 133 L 134 L Potassium 3.5 3.3 L 3.1 L Chloride 118 H 110 H 115 H Carbon Dioxide 15 L 14 L 12 L BUN 8 7 5 L Creatinine 0.60 0.61 0.41 L Glucose 214 H 203 H 154 H Calcium 7.4 L 8.3 L 8.1 L 09/11/17 09/12/17 17:43 08:26 Sodium 133 L 133 L Potassium 3.7 4.1 Chloride 113 H 106 Carbon Dioxide 13 L 18 L BUN 5 L 12 Creatinine 0.72 Glucose 250 H 438 H Calcium 8.1 L Liver Function 09/11/17 Range/Units 08:54 Total Bilirubin 0.3 (0.3-1.0) mg/dL AST 8 L (13-39) Units/L ALT 7 (7-52) Units/L Alkaline Phosphatase 78 (34-104) Units/L Albumin 3.4 L (3.5-5.7) g/dL Consult Discharge Plan - Plan Referrals: NONE,PCP [Primary Care Provider] -
[2017-09-12 09:42] LABS: Alanine Aminotransferase 10 Units/L (7-52); Albumin 3.4 g/dL (3.5-5.7); Albumin/Globulin Ratio 1.4 (1.1-2.2); Alkaline Phosphatase 84 Units/L (34-104); Aspartate Amino Transferase 16 Units/L (13-39); BUN/Creatinine Ratio 18 (6-26); Bilirubin,Total 0.5 mg/dL (0.3-1.0); Calcium 8.5 mg/dL (8.6-10.3); Globulin 2.5 g/dL (2.4-3.5); Total Protein 5.9 g/dL (6.4-8.9); eGFR For African Americans > 60; eGFR For Non-African Americans > 60
[2017-09-12] MEDS: Pantoprazole 40 MG VIAL IVP SCH (09:48)
[2017-09-12 09:51] LABS: Capillary Blood PH 7.52 pH Units (7.32-7.45)
[2017-09-12 09:55] LABS: Basophils % 0.6 %; Eosinophils % 0.4 %; Hematocrit 39.4 % (35.3-44.9); Hemoglobin 13.9 g/dL (11.5-15.4); Immature Granulocytes % 0.6 % (0-4); Lymphocytes # 1.5 K/mcL (0.6-4.6); Lymphocytes % 29.8 %; Mean Corpuscular HGB Conc 35.3 g/dL (31.6-35.5); Mean Corpuscular Hemoglobin 30.9 pg (28.0-33.3); Mean Corpuscular Volume 87.6 fL (83.0-100.0); Mean Platelet Volume 10.7 fL (9.4-12.4); Monocytes # 0.4 K/mcL (0.0-1.3); Monocytes % 7.2 %; Platelet Count 163 K/mcL (140-400); Red Cell Distribution Width 12.8 % (11.5-14.5); Segmented Neutrophils % 61.4 %
[2017-09-12 10:21] LABS: Platelet Estimate Normal (Normal)
[2017-09-13] MEDS: 0.9 % Sodium Chloride 1,000 ML IVC SCH ×3 (00:22→14:18)
[2017-09-13] MEDS: *HR* Heparin 5,000 UNIT/ML VIAL SQ SCH ×2 (05:16→12:58)
[2017-09-13 06:33] LABS: Basophils % 0.3 %; Eosinophils % 0.9 %; Hematocrit 39.2 % (35.3-44.9); Hemoglobin 13.5 g/dL (11.5-15.4); Immature Granulocytes % 0.3 % (0-4); Lymphocytes # 1.8 K/mcL (0.6-4.6); Lymphocytes % 50.3 %; Mean Corpuscular HGB Conc 34.4 g/dL (31.6-35.5); Mean Corpuscular Hemoglobin 30.5 pg (28.0-33.3); Mean Corpuscular Volume 88.7 fL (83.0-100.0); Monocytes # 0.2 K/mcL (0.0-1.3); Monocytes % 6.5 %; Neutrophils # 1.5 K/mcL (1.6-8.9); Platelet Count 133 K/mcL (140-400); Red Blood Count 4.42 M/mcL (3.82-4.97); Red Cell Distribution Width 12.4 % (11.5-14.5); Segmented Neutrophils % 41.7 %
[2017-09-13 06:55] LABS: BUN/Creatinine Ratio 23 (6-26); Blood Urea Nitrogen 16 mg/dL (6-20); Calcium 8.3 mg/dL (8.6-10.3); Carbon Dioxide 25 mEq/L (23-29); Chloride 104 mEq/L (98-107); Glucose 431 mg/dL (70-105); Osmolality,Calculated 302 (280-300); Sodium 136 mEq/L (136-145); eGFR For African Americans > 60; eGFR For Non-African Americans > 60
[2017-09-13] MEDS ORDERED: Insulin LISPRO 300 UNITS/3 ML VIAL SQ SCH (07:00)
--- NOTE | 2017-09-13 07:53 | Internal Med Progress Note ---
Date of Encounter: 09/13/17 Time of Encounter: 07:53 - Subjective Interval history: HPI from H&P: The patient is a 21 year old woman with type I diabetes mellitus, uncontrolled initially presented to [place] emergency department for elevated glucose. She was found to be in diabetic ketoacidosis. She admits to not taking her insulin earlier today she felt nauseated. States around 1500 she took her glucose which was greater than 500. States she has been very tired and has slept all day. She does report to drinking some apple juice at a local restaurant which made her feel low nauseated. She denies any recent illness. She denies any cough, abdominal pain, vomiting, diarrhea. Denies any recent travel. She has significant history of DKA and noncompliance with her insulin. Her family is at bedside and states she was recently prescribed a insulin pump which has not been installed to help with her glucose control. She has been diabetic for past 3 years. She sees video editing intern with a scheduled appointment within the month. At the emergency department her glucose was for 95. A venous blood gas was drawn and shows acidotic 6.97 with a CO2 of 17 and a bicarb of 4. Her potassium is for. Anionic gap 27. She was immediately given to liter normal saline bolus and placed on insulin drip without bolus. She was also given bicarb. On arrival here to the intensive care unit at [facility] her glucose was found to be 206. She is awake alert and oriented to person place and time. She has no neurologic deficits. She is answering questions appropriately. She will be initiated on the DKA protocol." Interval history: 09/11/2017: By morning her AG had closed and the Insulin drip had been stopped. She's been off protocol since early am She had been given SQ long-acting insulin Throughout the day today her bicarb and pH levels have slowly increased. She has been on D0.45NS with 20mEq KCL/l at 250 ml per hour today until 18:30. AccuChecks are being taken qACHS and BMP q4 hrs. Her BG and K has increased so IVF were changed to NS at 2oo ml/hr. Diabetes education was ordered. 09/12/2017: Ph back to normal but HCO3 still low (13 ) Blood sample this am is hemolysed. Waiting for repeat labs She's been on NS at 200 ml/hr overnight 09/13/2017: Basal insulin added back BG high in am Able to be moved out of ICU A/P: DKA: 09/11/2017: -The DKA protocol was initially started -When the AG closed in early am Levemir was given and the drip stopped two hours later -D0.45NS with 20mEq KCL/l at 250 ml per hour was given -She's A&O x3 now with no signs of infection. -Serial BMP are still being obtained 09/12/2017: Continue NS at 200 ml/hr, DM-I: Her family arrived with a personal insulin pump. She appears noncompliant with DM mgt including diet DM education ordered. Dehydration: Continue aggressive fluid resuscitation - Constitutional Vitals: Temp Pulse Resp BP Pulse Ox 97.5 F L 79 16 123/72 99 09/13/17 04:47 09/13/17 06:00 09/13/17 06:00 09/13/17 06:00 09/13/17 04:00 General appearance: Present: cooperative, A&O X 3, pleasant, no acute distress, answers questions appropriately - Head Head exam: Present: atraumatic, normocephalic - Eye Eye exam: Present: PERRL, conjuntiva pink, sclera anicteric Pupils: Present: PERRL - Neck Neck exam general surgery: Present: supple, trachea midline. Absent: lymphadenopathy - Respiratory Respiratory exam: Present: CTAB. Absent: accessory muscle use, rales, rhonchi, wheezes - Cardiovascular Cardiovascular exam: Present: RRR, +S1, +S2. Absent: diastolic murmur, gallop, rubs, systolic murmur - GI/Abdominal GI/Abdominal exam: Present: normal bowel sounds, soft, no peritoneal signs. Absent: distended, tenderness - Extremities Exam Extremities exam: Present: warm, radial pulses palpable and symmetrical. Absent : calf tenderness, cyanotic, pedal edema - Neurological Exam Neurological exam: Present: CN II-XII intact, oriented X3, no focal deficits. Absent: pronater drift, facial droop, speech deficit - Skin Skin exam: Present: dry, intact Internal Medicine: Result - Labs CBC & Chem 7: 09/13/17 06:15 09/13/17 06:15 Labs: Short CBC 09/12/17 09/13/17 Range/Units 09:33 06:15 WBC 4.9 D 3.5 L (4.3-11.1) K/mcL Hgb 13.9 D 13.5 (11.5-15.4) g/dL Hct 39.4 39.2 (35.3-44.9) % Plt Count 163 D 133 L (140-400) K/mcL Neutrophils # 3.0 1.5 L (1.6-8.9) K/mcL BMP 09/12/17 09/13/17 08:26 06:15 Sodium 133 L 136 Potassium 4.1 4.0 Chloride 106 104 Carbon Dioxide 18 L 25 BUN 12 16 Creatinine 0.66 0.71 Glucose 438 H 431 H Calcium 8.5 L 8.3 L Liver Function 09/12/17 Range/Units 08:26 Total Bilirubin 0.5 (0.3-1.0) mg/dL AST 16 (13-39) Units/L ALT 10 (7-52) Units/L Alkaline Phosphatase 84 (34-104) Units/L Albumin 3.4 L (3.5-5.7) g/dL Consult Discharge Plan - Plan Referrals: NONE,PCP [Non-Partnered Physician] -
[2017-09-13] MEDS: Insulin LISPRO 300 UNITS/3 ML VIAL SQ SCH ×3 (08:05→16:45)
[2017-09-13] MEDS: Pantoprazole 40 MG VIAL IVP SCH ×2 (08:05→08:57)
[2017-09-13] MEDS ORDERED: Insulin DETEMIR 100 UNIT/ML X5UNITS SQ SCH (09:00)
[2017-09-13 11:44] LABS: Estimated Average Glucose 298 mg/dl
[2017-09-13] MEDS: Insulin DETEMIR 100 UNIT/ML X5UNITS SQ SCH (21:01)
[2017-09-14] MEDS: *HR* Heparin 5,000 UNIT/ML VIAL SQ SCH (05:19)
[2017-09-14 06:19] LABS: Basophils % 0.8 %; Eosinophils % 0.8 %; Hemoglobin 12.4 g/dL (11.5-15.4); Immature Granulocytes % 0.3 % (0-4); Lymphocytes # 2.2 K/mcL (0.6-4.6); Lymphocytes % 57.9 %; Mean Corpuscular HGB Conc 34.4 g/dL (31.6-35.5); Mean Corpuscular Hemoglobin 30.8 pg (28.0-33.3); Mean Corpuscular Volume 89.3 fL (83.0-100.0); Mean Platelet Volume 10.2 fL (9.4-12.4); Monocytes # 0.3 K/mcL (0.0-1.3); Monocytes % 7.9 %; Neutrophils # 1.2 K/mcL (1.6-8.9); Platelet Count 162 K/mcL (140-400); Red Blood Count 4.03 M/mcL (3.82-4.97); Red Cell Distribution Width 12.1 % (11.5-14.5); Segmented Neutrophils % 32.3 %
[2017-09-14 06:32] LABS: BUN/Creatinine Ratio 45 (6-26); Blood Urea Nitrogen 24 mg/dL (6-20); Carbon Dioxide 28 mEq/L (23-29); Chloride 100 mEq/L (98-107); Glucose 271 mg/dL (70-105); Osmolality,Calculated 292 (280-300); Potassium 4.1 mEq/L (3.5-5.1); Sodium 134 mEq/L (136-145); eGFR For African Americans > 60; eGFR For Non-African Americans > 60
[2017-09-14] MEDS: Insulin LISPRO 300 UNITS/3 ML VIAL SQ SCH ×3 (08:49→16:36)
[2017-09-14] MEDS: Insulin DETEMIR 100 UNIT/ML X5UNITS SQ SCH (08:49)
[2017-09-14] MEDS: Pantoprazole 40 MG VIAL IVP SCH (08:49)
[2017-09-14 11:13] VITALS: BP 117/79
--- NOTE | 2017-09-14 15:58 | Discharge Summary ---
Date of Encounter: 09/14/17 Time of Encounter: 15:53 - Discharge Diagnosis (1) Type 1 diabetes mellitus with ketoacidosis, uncontrolled Priority: Primary Status: Acute Comments: Presently patient's blood sugars have been 200-300 and around 150/160. She is tolerating food and fluids and lab work is within normal limits. We will continue with home insulin of Lantus and Humulin ICR 1:10, patient verbalized understanding She is to follow-up with in the a.m. Qualifiers: Diabetes mellitus complication detail: without coma Qualified Code(s): E10.10 - Type 1 diabetes mellitus with ketoacidosis without coma Hospital course: Ms. Black is a 21 year old female past medical history of type 1 diabetes which is uncontrolled. She initially presented to [place] emergency department for elevated glucose she was found to be in diabetic ketoacidosis blood sugars were greater than 500 VBG demonstrated acidosis her anion gap was 27 she was fluid resuscitated and placed on insulin drip. She was given bicarbonate she was admitted to ICU and monitored on insulin drip until her gap had closed. I did review records and according to ECW patient has been noncompliant with insulin as well as diet. She chronically has blood sugars are elevated 3 to 400s. A1c 12. She has been tolerating food and fluids she is ambulating in the hallways lab work is back to normal. Blood sugars have been 200 a few spike to 300 and mid 100s We did contact her manufacturing industrial engineer office and she has appointment 9:00 tomorrow morning. I advised the patient to continue with the insulin regime that she is on at home since it was recently adjusted and February per her manufacturing industrial engineer. She verbalized understanding. I also reviewed that she does have an appointment at 940 with her manufacturing industrial engineer advised her strongly to keep the appointment. She verbalized understanding as well as family in room verbalized understanding she is hemodynamically stable and is ready for discharge. Discharge discussed with: patient, family - Time Spent with Patient Total time spent providing and/or coordinating discharge services: - Discharge Medications Home Medications: Insulin ASPART [Novolog Flexpen] 10 unit SQ TIDWM #15 insuln.pen 04/07/17 [Rx] Citalopram Hydrobromide [Celexa] 20 mg PO DAILY 09/12/17 [History] Insulin Glargine,Hum.rec.anlog [Basaglar Kwikpen U-100] 28 unit SQ DAILY [History] Allergies/Adverse Reactions: 3 Allergy/AdvReac Type Severity Reaction Status Date / Time surgical tape Allergy Redness of Uncoded 07/07/17 20:11 Skin Date of admission: 09/10/17 21:06 Primary care physician: Aishwarya Schwartz CNP Consults: 09/11/17 18:30 Consult to Diabetes Education [CONS] Routine Comment: Reason for Consult: Very poor insight into mgt of her diabetes Discharging clinician: Deedee De Guzman Anticipated date of discharge: 09/14/17 - Constitutional Vitals: Temp Pulse Resp BP Pulse Ox 98.4 F 97 17 117/79 98 09/14/17 11:12 09/14/17 11:12 09/14/17 11:12 09/14/17 11:12 09/14/17 11:12 General appearance: Present: cooperative, A&O X 3, pleasant, no acute distress, answers questions appropriately - Patient Status Disposition: Home, Self-Care Condition: Good Functional capacity at discharge: independent ambulation Overall status at discharge: patient is progressing back to baseline - Discharge Instructions Instructions: Diabetic Ketoacidosis (DC), Diabetes Mellitus Type 2 in Adults ( DC), Meal Planning with Diabetes Exchanges (DC), Diabetes Mellitus Type 1 in Adults, Dial Painter (GEN) Follow Up With: Sushila Lackey MD [Partnered Physician] - 09/15/17 9:40 am (Left message with nurse. Awaiting response. ) Additional Instructions: Follow-up appointments: If there is not an appointment listed below, please call your physician and schedule a follow-up appointment. If you have congestive heart failure and your symptoms return, make an appointment with your physician. Medication List: Carry an up to date list of medications you are taking at all time. We have given you an updated medication list including any new medications that you have been prescribed. Please provide that list to your primary provider Symptoms: If your condition changes or you experience any of the following symptoms, notify your physician immediately: Unusual or worsening pain, fever, persistent nausea and vomiting, bleeding, increase in swelling (especially in your legs), sudden weight gain, extreme dizziness, chest pain, increased drainage or redness from a wound or incision. Go to the emergency department if you experience a problem with breathing. Weights: If you have a history of swelling or shortness of breath, weigh yourself daily and notify your physician if you have a weight gain of two or more pounds in one day or 5 or more pounds in a week. If you experience any of the warning signs for stroke: Sudden numbness or weakness of the face, arm or leg; especially on one side of the body, sudden confusion, trouble speaking or understanding, sudden trouble seeing in one or both eyes, sudden trouble walking, dizziness, loss of balance or coordination, sudden sever headache with no cause; Call 911 or go to the emergency room. Stroke is a medical emergency. Some risk factors for stroke: Age, cigarette smoking, diabetes, excessive alcohol consumption, family history , high blood pressure, overweight, physical inactivity, prior stroke, heart attack, diagnosis of carotid artery stenosis or other artery disease. If you smoke, STOP: Smoking or tobacco use significantly increases your risk of heart and lung disease. Your chance of disease greatly increases if you continue to smoke. For more information, call the [place] tobacco quit line for smoking cessation QUIT-NOW ( ) - Diet and Activity Activity: resume usual activities as tolerated Diet: diabetic diet
== END 2017-09-14 16:41 | disposition home or self-care (01) | DRG 420 ==
LOC: ICNU 21:06 → UNDODISIN 09-12 11:50 → 3BNU 09-14 00:19
PROVIDERS: ADMIT Internal Medicine; ATTEND Internal Medicine

== ENCOUNTER 2017-09-23 20:39 | Observation (INO) ==
[2017-09-23] MEDS ORDERED: Ondansetron 4 MG/2 ML VIAL IVP PRN (23:49)
[2017-09-23] MEDS ORDERED: Acetaminophen 325 MG TABLET PO PRN (23:50)
[2017-09-23] MEDS ORDERED: Naloxone 0.4 MG/ML INJ IVP PRN (23:50)
[2017-09-23] MEDS ORDERED: Dextrose Gel 15 GM/37.5 ML TUBE PO PRN ×2 (23:54)
[2017-09-23] MEDS ORDERED: D5% in Water 1,000 ML IVC PRN (23:54)
--- NOTE | 2017-09-23 23:54 | Internal Med History&Physical ---
Date of Encounter: 09/24/17 Time of Encounter: 23:52 Internal Medicine - H&P: HPI Chief complaint: Hypoglycemia Admitted From: Direct Admit Plans for Post Hospital Care: Home History of present illness: Ms. Black is a 21 year old female with a history of insulin-dependent diabetes mellitus and noncompliance who has had multiple admissions in the past for DKA most recently discharged on 09/14 who is transferred from [place] due to hypoglycemic episode. Upon presentation there she reported that she has been nauseated and vomiting for 3 days and has not been able to hold anything down. No abdominal pain. No diarrhea or constipation. Says she has low sugars at home as low as the 50s which prompted her visit. Earlier in the day she took her regular lantus dose in the morning. Later in the morning she checked her glucose and says the glucometer was reading it "too high" so she called her product picker and was told to take 60 units of her sliding scale novolog. Later she started feeling more nauseous and dizzy. She check her glucose and it was in the 50s so she went to the ED there. In the emergency department she had glucose of 56 for which she was given an amp of D50 and initially put on IV fluids that were switched to dextrose drip. Laboratory workup showed metabolic acidosis with anion gap of only 12. Glucose was 78 on labs. Potassium was 2.8. She had a white count of 9.1 although in the past she was leukopenic. Her hemoglobin was 16.7 and platelets were elevated at 437 which are all higher than her baselines. Vitals were mostly stable except for heart rate of 137 upon presentation there. She was afebrile. Denies fever, chills, headache, chest pain, shortness of breath, abdominal pain, urinary symptoms, or neurological symptoms. Past Med Surg Social Fam HX - Past Medical History Medical history: diabetes Psychiatric history: ADHD, bipolar, depression - Past Surgical History Surgical History: no surgical history - Social History Smoking Status: Never smoker Smokeless Tobacco Status: No Alcohol use: none Drug use: none - Family History Father Family Member Ethnicity: Non- Living Status: Still Living Hx Family Cardiac Disorders: Yes Hx Family Respiratory Disorders: Yes Hx Family Cancer: Yes Mother Family Member Ethnicity: Non- Living Status: Still Living Hx Family Cardiac Disorders: Yes (HTN) Hx Family Respiratory Disorders: Yes (Asthma) Hx Family Cancer: Yes Hx Family Endocrine Disorder: Yes Brother Family Member Ethnicity: Non- Living Status: Still Living Hx Family Respiratory Disorders: Yes (Asthma) Sister Family Member Ethnicity: Non- Living Status: Still Living Hx Family Respiratory Disorders: Yes (asthma) Internal Medicine - H&P: Meds Citalopram Hydrobromide [Celexa] 20 mg PO DAILY 09/12/17 [History] Insulin Glargine,Hum.rec.anlog [Basaglar Kwikpen U-100] 28 unit SQ DAILY [History] Insulin ASPART [Novolog Flexpen] See Protocol SQ TIDWM 09/23/17 [History] 3 Allergy/AdvReac Type Severity Reaction Status Date / Time surgical tape Allergy Redness of Uncoded 07/07/17 20:11 Skin All Systems PM: A 10-system review of systems was performed and is negative for pertinent findings except as documented above in the HPI. Review of systems: all systems reviewed are negative except for what is mentioned above - Constitutional Vitals: Temp Pulse Resp BP Pulse Ox 98.7 F 110 20 118/78 100 09/23/17 22:40 09/23/17 22:40 09/23/17 22:40 09/23/17 22:40 09/23/17 22:40 Exam: GEN: NAD HEENT: AT, NC, No cyanosis, oral mucosa is moist, No JVD Lymphatics: No lymphadenoapthy Eyes: Extrocular muscles intact, anicteric CVS:RRR. S1, S2, No m/r/g RESP: CTAB ABD: Soft, NT, ND, +BS EXT: No edema, No rashes, 2+ DP NEURO: Nonfocal, CN II-XII intact, No focal motor or sensory deficits Psych: Cooperative, Not anxious or depressed - Assessment and plan (1) Hypoglycemia Current Visit: Yes Status: Acute Assessment and plan: The patient was transferred here on dextrose drip. We will keep her on that. Accu-Chek's every 2 hours. The patient is diabetic and is a on insulin. Hold home insulin doses for now. Follows up with an product picker. (2) Dehydration Current Visit: Yes Status: Acute Assessment and plan: Patient's have signs of dehydration with tachycardia, white count above her baseline, elevated hemoglobin, elevated platelets all above baseline. We will hydrate the patient with IV fluids. (3) Metabolic acidosis with normal anion gap and bicarbonate losses Current Visit: Yes Status: Acute Assessment and plan: The patient is hypoglycemic. There is ketonuria. I believe she is possibly going through some starvation ketosis that she has not much intake for the last few days. We will continue with IV hydration which should correct the acidosis. Repeat labs now. (4) Starvation ketoacidosis Current Visit: Yes Status: Acute Assessment and plan: treatment as above. (5) N&V (nausea and vomiting) Current Visit: No Status: Acute Assessment and plan: Symptomatic treatment for now. Possibly viral gastroenteritis. Qualifiers: Vomiting type: unspecified Vomiting Intractability: unspecified Qualified Code(s): R11.2 - Nausea with vomiting, unspecified (6) DVT prophylaxis Current Visit: Yes Status: Acute Assessment and plan: SCDs - Time Spent With Patient Total time spent is greater than 50% in coordination of care (as documented) at patient's floor/unit and/or counseling patient:
[2017-09-24 00:39] LABS: Basophils % 0.4 %; Hematocrit 37.3 % (35.3-44.9); Hemoglobin 13.5 g/dL (11.5-15.4); Immature Granulocytes % 0.4 % (0-4); Lymphocytes # 1.9 K/mcL (0.6-4.6); Lymphocytes % 28.6 %; Mean Corpuscular HGB Conc 36.2 g/dL (31.6-35.5); Mean Corpuscular Hemoglobin 31.8 pg (28.0-33.3); Mean Corpuscular Volume 87.8 fL (83.0-100.0); Mean Platelet Volume 9.4 fL (9.4-12.4); Monocytes # 0.6 K/mcL (0.0-1.3); Monocytes % 8.7 %; Neutrophils # 4.2 K/mcL (1.6-8.9); Platelet Count 269 K/mcL (140-400); Red Blood Count 4.25 M/mcL (3.82-4.97); Red Cell Distribution Width 13.2 % (11.5-14.5); Segmented Neutrophils % 61.9 %
[2017-09-24] MEDS ORDERED: D5% in 0.9% NACL w KCl 20 MEQ/1,000 ML MLS IVC SCH (00:45)
[2017-09-24 00:57] LABS: Alanine Aminotransferase 7 Units/L (7-52); Albumin 3.6 g/dL (3.5-5.7); Alkaline Phosphatase 76 Units/L (34-104); Aspartate Amino Transferase 8 Units/L (13-39); BUN/Creatinine Ratio 20 (6-26); Bilirubin,Total 0.4 mg/dL (0.3-1.0); Blood Urea Nitrogen 11 mg/dL (6-20); Calcium 8.5 mg/dL (8.6-10.3); Carbon Dioxide 14 mEq/L (23-29); Chloride 110 mEq/L (98-107); Globulin 1.8 g/dL (2.4-3.5); Glucose 175 mg/dL (70-105); Magnesium 1.8 mg/dL (1.6-2.6); Osmolality,Calculated 282 (280-300); Phosphorous 1.9 mg/dL (2.7-4.5); Potassium 3.2 mEq/L (3.5-5.1); Sodium 134 mEq/L (136-145); Total Protein 5.4 g/dL (6.4-8.9); eGFR For African Americans > 60; eGFR For Non-African Americans > 60
[2017-09-24] MEDS ORDERED: Potassium Chloride 40 MEQ, Lidocaine 1% 2 ML in D5% in Water 500 ML IVPB ONE (01:15)
[2017-09-24] MEDS ORDERED: Potassium Chloride 20 MEQ, Lidocaine 1% 2 ML in D5% in Water 250 ML IVPB ONE (01:16)
[2017-09-24] MEDS: 0.9 % Sodium Chloride w KCl 20 MEQ/1,000 ML MLS IVC SCH ×2 (01:33→11:22)
[2017-09-24] MEDS ORDERED: *HR* Heparin 5,000 UNIT/ML VIAL SQ SCH (06:00)
[2017-09-24 09:47] LABS: Basophils # 0.1 K/mcL (0.0-0.2); Eosinophils % 0.4 %; Hematocrit 42.3 % (35.3-44.9); Hemoglobin 14.6 g/dL (11.5-15.4); Immature Granulocytes % 0.4 % (0-4); Lymphocytes # 1.7 K/mcL (0.6-4.6); Lymphocytes % 33.3 %; Mean Corpuscular HGB Conc 34.5 g/dL (31.6-35.5); Mean Corpuscular Hemoglobin 31.8 pg (28.0-33.3); Mean Corpuscular Volume 92.2 fL (83.0-100.0); Mean Platelet Volume 9.9 fL (9.4-12.4); Monocytes # 0.3 K/mcL (0.0-1.3); Monocytes % 6.4 %; Neutrophils # 2.9 K/mcL (1.6-8.9); Platelet Count 214 K/mcL (140-400); Red Blood Count 4.59 M/mcL (3.82-4.97); Red Cell Distribution Width 13.8 % (11.5-14.5); Segmented Neutrophils % 58.5 %
[2017-09-24 10:24] LABS: BUN/Creatinine Ratio 11 (6-26); Blood Urea Nitrogen 7 mg/dL (6-20); Calcium 7.9 mg/dL (8.6-10.3); Carbon Dioxide 6 mEq/L (23-29); Chloride 105 mEq/L (98-107); Glucose 553 mg/dL (70-105); Magnesium 1.7 mg/dL (1.6-2.6); Osmolality,Calculated 291 (280-300); Phosphorous 2.8 mg/dL (2.7-4.5); Potassium 4.1 mEq/L (3.5-5.1); Sodium 129 mEq/L (136-145); eGFR For African Americans > 60; eGFR For Non-African Americans > 60
[2017-09-24] MEDS ORDERED: Insulin DETEMIR 100 UNIT/ML X5UNITS SQ STA (10:49)
[2017-09-24] MEDS ORDERED: Insulin LISPRO 300 UNITS/3 ML VIAL SQ STA (10:50)
[2017-09-24] MEDS ORDERED: Ringers Solution, Lactated 1,000 ML IVC ONE (10:53)
[2017-09-24] MEDS ORDERED: Insulin DETEMIR 100 UNIT/ML X5UNITS SQ ONE ×2 (10:57→21:41)
[2017-09-24] MEDS ORDERED: Insulin Human Regular 10 UNIT in 0.9 % Sodium Chloride 10 ML IV ONE (10:59)
[2017-09-24] MEDS ORDERED: D5% in 0.45% NACL 1,000 ML IVC PRN (11:54)
[2017-09-24] MEDS ORDERED: Insulin Regular, Human 100 UNIT/ML IV PRN ×2 (11:54→15:23)
[2017-09-24] MEDS ORDERED: Insulin Human Regular 100 UNIT in 0.9 % Sodium Chloride 100 ML IVC SCH ×2 (12:00→15:30)
[2017-09-24] MEDS ORDERED: Insulin LISPRO 300 UNITS/3 ML VIAL SQ SCH (12:00)
[2017-09-24] MEDS: D5% in 0.45% NACL w KCl 20 MEQ/1,000 ML MLS IVC PRN ×2 (13:52→18:43)
[2017-09-24 14:39] LABS: BUN/Creatinine Ratio 9 (6-26); Blood Urea Nitrogen 5 mg/dL (6-20); Calcium 7.9 mg/dL (8.6-10.3); Carbon Dioxide 12 mEq/L (23-29); Chloride 114 mEq/L (98-107); Glucose 171 mg/dL (70-105); Osmolality,Calculated 285 (280-300); Potassium 3.3 mEq/L (3.5-5.1); Sodium 137 mEq/L (136-145); eGFR For African Americans > 60; eGFR For Non-African Americans > 60
--- NOTE | 2017-09-24 15:45 | Internal Med Progress Note ---
Date of Encounter: 09/24/17 Time of Encounter: 11:35 - Assessment and plan (1) DKA (diabetic ketoacidoses) Current Visit: Yes Status: Acute Assessment and plan: Patient's blood sugars are elevated this morning and patient appears to be in diabetic ketoacidosis. Will place her on DKA protocol. Monitor basic panel closely. Keep nothing by mouth. IV insulin. We will transition to subcutaneous insulin once her acidosis resolves. Qualifiers: Diabetes mellitus type: type 1 Diabetes mellitus complication detail: without coma Qualified Code(s): E10.10 - Type 1 diabetes mellitus with ketoacidosis without coma (2) N&V (nausea and vomiting) Current Visit: Yes Status: Resolved Assessment and plan: Nausea and vomiting have resolved. Qualifiers: Vomiting type: unspecified Vomiting Intractability: unspecified Qualified Code(s): R11.2 - Nausea with vomiting, unspecified (3) Hypoglycemia Current Visit: Yes Status: Resolved Assessment and plan: Resolved (4) Starvation ketoacidosis Current Visit: Yes Status: Acute (5) Dehydration Current Visit: Yes Status: Acute Assessment and plan: Continue IV hydration (6) DVT prophylaxis Current Visit: Yes Status: Acute (7) Metabolic acidosis with normal anion gap and bicarbonate losses Current Visit: Yes Status: Acute Assessment and plan: Due to nausea and vomiting. Continue IV hydration - Time Spent With Patient Total time spent is greater than 50% in coordination of care (as documented) at patient's floor/unit and/or counseling patient: - Subjective Interval history: Patient is feeling better this morning. No longer having nausea or vomiting. No abdominal pain. Feels hungry. - Constitutional Vitals: Temp Pulse Resp BP Pulse Ox 97.5 F L 101 18 128/83 100 09/24/17 11:17 09/24/17 11:17 09/24/17 11:17 09/24/17 11:17 09/24/17 11:17 General appearance: Present: cooperative, A&O X 3, answers questions appropriately - Neck Neck exam general surgery: Present: supple, trachea midline. Absent: lymphadenopathy - Respiratory Respiratory exam: Present: CTAB. Absent: accessory muscle use, rales, rhonchi, wheezes - Cardiovascular Cardiovascular exam: Present: RRR, +S1, +S2. Absent: diastolic murmur, gallop, rubs, systolic murmur - GI/Abdominal GI/Abdominal exam: Present: normal bowel sounds, soft, no peritoneal signs. Absent: distended, tenderness - Extremities Exam Extremities exam: Present: warm, radial pulses palpable and symmetrical. Absent : calf tenderness, cyanotic, pedal edema - Neurological Exam Neurological exam: Present: alert, oriented X3, no focal deficits. Absent: facial droop, speech deficit - Skin Skin exam: Present: dry, intact Internal Medicine: Result - Labs CBC & Chem 7: 09/24/17 09:25 09/24/17 13:59 Labs: Short CBC 09/24/17 09/24/17 Range/Units 00:28 09:25 WBC 6.8 5.0 (4.3-11.1) K/mcL Hgb 13.5 D 14.6 (11.5-15.4) g/dL Hct 37.3 42.3 (35.3-44.9) % Plt Count 269 214 (140-400) K/mcL Neutrophils # 4.2 2.9 (1.6-8.9) K/mcL BMP 09/24/17 09/24/17 09/24/17 00:28 09:25 13:59 Sodium 134 L 129 L 137 Potassium 3.2 L 4.1 D 3.3 L Chloride 110 H 105 114 H Carbon Dioxide 14 L 6 L* 12 L BUN 11 7 5 L Creatinine 0.56 L 0.62 0.55 L Glucose 175 H 553 H* 171 H Calcium 8.5 L 7.9 L 7.9 L Liver Function 09/24/17 Range/Units 00:28 Total Bilirubin 0.4 (0.3-1.0) mg/dL AST 8 L (13-39) Units/L ALT 7 (7-52) Units/L Alkaline Phosphatase 76 (34-104) Units/L Albumin 3.6 (3.5-5.7) g/dL Consult Discharge Plan - Plan Referrals: Aishwarya Schwartz CNP [Primary Care Provider] - 09/30/17 1:30 pm
[2017-09-24] MEDS ORDERED: Insulin Human Regular 5 UNIT in 0.9 % Sodium Chloride 10 ML IV ONE (16:00)
[2017-09-24] MEDS: *HR* Dextrose 50 % in Water (Syg) 50 ML SYRINGE IVP PRN ×2 (18:38→21:06)
[2017-09-24 20:32] LABS: BUN/Creatinine Ratio 8 (6-26); Blood Urea Nitrogen 3 mg/dL (6-20); Calcium 7.7 mg/dL (8.6-10.3); Carbon Dioxide 17 mEq/L (23-29); Chloride 113 mEq/L (98-107); Glucose 112 mg/dL (70-105); Osmolality,Calculated 279 (280-300); Potassium 3.5 mEq/L (3.5-5.1); Sodium 136 mEq/L (136-145); eGFR For African Americans > 60; eGFR For Non-African Americans > 60
[2017-09-24 21:05] LABS: ABG Base Excess -3 mEq/L (-2 to 3); ABG HCO3 21 mEq/L (21-27); ABG Oxygen Saturation 98 % (95-98); ABG PCO2 34 mmHg (35-45); ABG PH 7.39 pH Units (7.32-7.45); ABG PO2 106 mmHg (85-104); ABG TCO2 22 mEq/L (20-26)
[2017-09-24] MEDS ORDERED: Insulin DETEMIR 100 UNIT/ML X5UNITS SQ SCH (21:45)
[2017-09-24] MEDS: Ringers Solution, Lactated 1,000 ML IVC SCH (22:17)
[2017-09-25 02:37] LABS: BUN/Creatinine Ratio 10 (6-26); Blood Urea Nitrogen 5 mg/dL (6-20); Calcium 7.7 mg/dL (8.6-10.3); Carbon Dioxide 19 mEq/L (23-29); Chloride 116 mEq/L (98-107); Glucose 122 mg/dL (70-105); Osmolality,Calculated 289 (280-300); Potassium 3.3 mEq/L (3.5-5.1); Sodium 140 mEq/L (136-145); eGFR For African Americans > 60; eGFR For Non-African Americans > 60
[2017-09-25] MEDS: Ringers Solution, Lactated 1,000 ML IVC SCH (07:23)
[2017-09-25] MEDS: Insulin LISPRO 300 UNITS/3 ML VIAL SQ SCH ×2 (07:48→12:33)
[2017-09-25] MEDS ORDERED: Insulin DETEMIR 100 UNIT/ML X5UNITS SQ SCH (09:00)
--- NOTE | 2017-09-25 10:48 | Discharge Summary ---
- NOTES TO OUTPATIENT PROVIDER Notes to Outpatient Provider: Patient initially admitted with hypoglycemia due to one-time increase in short-acting insulin. Treated with dextrose and patient developed mild DKA that has now resolved. Recommend placing going back on her usual insulin regimen with no adjustments at this time. Date of Encounter: 09/25/17 Time of Encounter: 10:44 - Discharge Diagnosis (1) Hypoglycemia Priority: Primary Status: Resolved (2) DKA (diabetic ketoacidoses) Priority: Secondary Status: Acute Qualifiers: Diabetes mellitus type: type 1 Diabetes mellitus complication detail: without coma Qualified Code(s): E10.10 - Type 1 diabetes mellitus with ketoacidosis without coma (3) N&V (nausea and vomiting) Priority: Secondary Status: Resolved Qualifiers: Vomiting type: unspecified Vomiting Intractability: unspecified Qualified Code(s): R11.2 - Nausea with vomiting, unspecified (4) Starvation ketoacidosis Priority: Secondary Status: Acute (5) Dehydration Priority: Secondary Status: Acute (6) DVT prophylaxis Priority: Secondary Status: Acute (7) Metabolic acidosis with normal anion gap and bicarbonate losses Priority: Secondary Status: Acute Hospital course: Ms. Black is a 21 year old female patient with a history of type 1 diabetes mellitus who was hospitalized here with hyperglycemia after she took 60 units of insulin aspart per recommendations from her traffic control signaler regarding persistently elevated blood sugars. She was monitored here and kept nothing by mouth as she was also having nausea and vomiting. Eventually her blood sugars improved but she began to develop DKA due to combination of starvation ketoacidosis and dehydration. She was immediately started on DKA protocol with IV insulin with improvement in her blood sugars and her acidosis. She is now doing much better and is tolerating oral diet well. Her DKA has resolved. She is clinically stable to be discharged home. I recommend she follow up with her traffic control signaler and she has an appointment next week for this. She will go back to her usual insulin regimen without any changes to her short-acting insulin. Discharge discussed with: patient - Time Spent with Patient Total time spent providing and/or coordinating discharge services: Less than 30 minutes (25 min) - Discharge Medications Home Medications: Citalopram Hydrobromide [Celexa] 20 mg PO DAILY 09/12/17 [History] Insulin Glargine,Hum.rec.anlog [Basaglar Kwikpen U-100] 28 unit SQ DAILY [History] Insulin ASPART [Novolog Flexpen] 0 unit SQ TIDWM 09/23/17 [History] Allergies/Adverse Reactions: 3 Allergy/AdvReac Type Severity Reaction Status Date / Time surgical tape Allergy Redness of Uncoded 07/07/17 20:11 Skin Date of admission: 09/23/17 22:32 Primary care physician: Aishwarya Schwartz CNP Discharging clinician: Kal Galeano Anticipated date of discharge: 09/25/17 - Constitutional Vitals: Temp Pulse Resp BP Pulse Ox 97.6 F 81 18 107/55 99 09/25/17 07:40 09/25/17 08:00 09/25/17 07:40 09/25/17 07:40 09/25/17 07:40 General appearance: Present: cooperative, A&O X 3, answers questions appropriately - Respiratory Respiratory exam: Present: CTAB. Absent: accessory muscle use, rales, rhonchi, wheezes - GI/Abdominal GI/Abdominal exam: Present: normal bowel sounds, soft, no peritoneal signs. Absent: distended, tenderness - Extremities Exam Extremities exam: Present: warm, radial pulses palpable and symmetrical. Absent : calf tenderness, cyanotic, pedal edema - Patient Status Disposition: Home, Self-Care Condition: Good Functional capacity at discharge: independent ambulation Overall status at discharge: patient is back to baseline - Discharge Instructions Instructions: Urinary Tract Infection in Women (DC), Diabetes Mellitus Type 2 in Adults (DC) Follow Up With: Aishwarya Schwartz CNP [Primary Care Provider] - 09/30/17 1:30 pm - Diet and Activity Activity: increase activity as tolerated Diet: low fat, low cholesterol, low salt diet
[2017-09-25 11:33] VITALS: BP 130/81
[2017-09-25] MEDS ORDERED: Insulin LISPRO 300 UNITS/3 ML VIAL SQ SCH (21:00)
== END 2017-09-25 13:29 | disposition home or self-care (01) ==
LOC: 2NNU → SUATTDRO 22:32
PROVIDERS: ADMIT Internal Medicine; ATTEND Internal Medicine

== ENCOUNTER 2019-01-16 00:19 | Observation (INO) ==
[2019-01-16] MEDS ORDERED: Ondansetron 4 MG/2 ML VIAL IVP PRN (02:22)
[2019-01-16] MEDS ORDERED: Naloxone 0.4 MG/ML INJ IVP PRN (02:22)
[2019-01-16] MEDS ORDERED: D5% in 0.45% NACL w KCl 20 MEQ/1,000 ML MLS IVC PRN (02:26)
[2019-01-16] MEDS ORDERED: D5% in 0.45% NACL 1,000 ML IVC PRN (02:26)
[2019-01-16] MEDS ORDERED: Insulin Regular, Human 100 UNIT/ML IV PRN (02:26)
[2019-01-16] MEDS ORDERED: *HR* Dextrose 50 % in Water (Syg) 50 ML SYRINGE IVP PRN ×2 (02:26→11:50)
[2019-01-16] MEDS ORDERED: 0.9 % Sodium Chloride w KCl 20 MEQ/1,000 ML MLS IVC PRN ×2 (02:30)
[2019-01-16] MEDS ORDERED: Insulin Human Regular 100 UNIT in 0.9 % Sodium Chloride 100 ML IVC SCH ×3 (02:30→07:30)
[2019-01-16] MEDS ORDERED: 0.45 % Sodium Chloride w/KCl 20 MEQ/1,000 ML MLS IVC PRN ×2 (02:30)
[2019-01-16] MEDS ORDERED: 0.9 % Sodium Chloride 1,000 ML IVC PRN ×2 (02:30)
[2019-01-16 02:59] LABS: VBG HCO3 13 mEq/L (21-27); VBG PCO2 30 mmHg (41-51); VBG PH 7.26 pH Units (7.32-7.42); VBG PO2 161 mmHg (25-50)
--- NOTE | 2019-01-16 03:03 | Internal Med History&Physical ---
Date of Encounter: 01/16/19 Internal Medicine - H&P: HPI History of present illness: Ms. Black is a 23 year old female Past Med Surg Social Fam HX - Past Medical History Medical history: diabetes Additional medical history: trouble breating at night Psychiatric history: ADHD, bipolar, depression - Past Surgical History Surgical History: no surgical history Additional surgical history: wart removeal from right foot - Social History Smoking Status: Never smoker Smokeless Tobacco Status: No Alcohol use: occasionally Drug use: none - Family History Father Family Member Ethnicity: Non- Living Status: Still Living Hx Family Cardiac Disorders: Yes Hx Family Respiratory Disorders: Yes Hx Family Cancer: Yes Mother Family Member Ethnicity: Non- Living Status: Still Living Hx Family Cardiac Disorders: Yes (HTN) Hx Family Respiratory Disorders: Yes (Asthma) Hx Family Cancer: Yes Hx Family Endocrine Disorder: Yes Brother Family Member Ethnicity: Non- Living Status: Still Living Hx Family Respiratory Disorders: Yes (Asthma) Sister Family Member Ethnicity: Non- Living Status: Still Living Hx Family Respiratory Disorders: Yes (asthma) Internal Medicine - H&P: Meds Insulin LISPRO [Admelog] 0 unit SQ DAILY 12/12/18 [History] Allergy/AdvReac Type Severity Reaction Status Date / Time surgical tape Allergy Redness of Uncoded 01/15/19 22:24 Skin All Systems PM: A 10-system review of systems was performed and is negative for pertinent findings except as documented above in the HPI. - Constitutional Vitals: Temp Pulse Resp BP Pulse Ox 98.6 F 92 16 117/75 99 01/16/19 02:22 01/16/19 02:22 01/16/19 02:22 01/16/19 02:22 01/16/19 02:22 Internal Med - H&P Results - ABG Interpretation ABG results: 01/16/19 02:57 VBG pH 7.26 L VBG pCO2 30 L VBG pO2 161 H VBG HCO3 13 L - Time Spent With Patient Total time spent is greater than 50% in coordination of care (as documented) at patient's floor/unit and/or counseling patient:
[2019-01-16 03:19] LABS: BUN/Creatinine Ratio 18 (6-26); Blood Urea Nitrogen 12 mg/dL (6-20); Calcium 8.1 mg/dL (8.6-10.3); Carbon Dioxide 13 mEq/L (23-29); Chloride 109 mEq/L (98-107); Glucose 267 mg/dL (70-105); Osmolality,Calculated 277 (280-300); Potassium 3.7 mEq/L (3.5-5.1); Sodium 129 mEq/L (136-145); eGFR For African Americans > 60 (> 60); eGFR For Non-African Americans > 60 (> 60)
[2019-01-16] MEDS: Potassium Chloride 20 MEQ in D5% in Lactated Ringers 1,000 ML IVC SCH ×2 (04:53→12:09)
--- NOTE | 2019-01-16 05:54 | Internal Med History&Physical ---
Date of Encounter: 01/16/19 Time of Encounter: 04:00 Internal Medicine - H&P: HPI Chief complaint: DKA Admitted From: Hospital to Hospital Transfer Plans for Post Hospital Care: Home History of present illness: Ms. Black is a 23 year old female who presents in transfer from [facility] ER for concerns of DKA. She presented there with nausea and poorly controlled glucose for the last 3 days. She was found to have evidence of DKA. She had an insulin pump on her body, which was removed at the ER and she was placed on insulin drip, IV fluids, and then transferred to [facility]. Upon arrival, I saw patient with my resident. She still appears dehydrated but her anion gap is now closed. She denies any fevers, chills, night sweats, chest pain, cough, shortness breath, diarrhea, or vomiting. She has had protracted nausea for the last 3 days. Oral intake has been minimal. She has been on insulin pump but she has not been checking her glucoses as she should. She follows with endocrinology here, but she missed her last appointment. Regarding her glucose control at home, her normal/average readings have been around 200 - 250. She has had compliance problems in the past with her glucose monitoring and follow up. Past Med Surg Social Fam HX - Past Medical History Attestation: Yes The following information was validated with the patient. Source: patient, old records reviewed Medical history: diabetes Psychiatric history: ADHD, bipolar, depression - Past Surgical History Surgical History: other Additional surgical history: wart removal from right foot - Social History Smoking Status: Never smoker Smokeless Tobacco Status: No Alcohol use: occasionally Drug use: none Current living situation: Home, With Family Activity Level: Independent ambulation Recent Out of Country Travel Within the Last 8 Weeks: No - Family History Father Family Member Ethnicity: Non- Living Status: Still Living Hx Family Cardiac Disorders: Yes Hx Family Respiratory Disorders: Yes Hx Family Cancer: Yes Mother Family Member Ethnicity: Non- Living Status: Still Living Hx Family Cardiac Disorders: Yes (HTN) Hx Family Respiratory Disorders: Yes (Asthma) Hx Family Cancer: Yes Hx Family Endocrine Disorder: Yes Brother Family Member Ethnicity: Non- Living Status: Still Living Hx Family Respiratory Disorders: Yes (Asthma) Sister Family Member Ethnicity: Non- Living Status: Still Living Hx Family Respiratory Disorders: Yes (asthma) Internal Medicine - H&P: Meds Insulin LISPRO [Admelog] 0 unit SQ DAILY 12/12/18 [History] 3 Allergy/AdvReac Type Severity Reaction Status Date / Time surgical tape Allergy Redness of Uncoded 01/15/19 22:24 Skin - Constitutional Constitutional: no chills, no fever(s), no night sweats - EENT Eyes: blurry vision, no change in vision Ears: no ear pain, no tinnitus Nose, mouth and throat: no nasal congestion, no sinus pressure, no sore throat - Cardiovascular Cardiovascular ROS IM: no chest pain, no dyspnea, no dyspnea on exertion - Respiratory Respiratory: no cough, no chest congestion, no excessive phlegm production, no change in phlegm color - Gastrointestinal Gastrointestinal: nausea, no abdominal pain, no diarrhea, no hematemesis, no hematochezia, no melena, no vomiting - Genitourinary Genitourinary: no dysuria, no flank pain, no hematuria - Musculoskeletal Musculoskeletal ROS IM: no arthralgias, no back pain - Integumentary Integumentary IM: no rash, no jaundice - Neurological Neurological ROS: no dizziness, no focal weakness, no frequent falls, no headache(s) - Psychiatric Psychiatric: no anxiety, no depression - Endocrine Endocrine IM: fatigue, polydipsia, polyuria, no cold intolerance, no heat intolerance, no polyphagia - Allergic/Immunologic Allergic/Immunologic: no GI upset with certain foods - Constitutional Vitals: Temp Pulse Resp BP Pulse Ox 98.6 F 92 16 117/75 99 01/16/19 02:22 01/16/19 02:22 01/16/19 02:22 01/16/19 02:22 01/16/19 02:22 General appearance: Present: cooperative, A&O X 3, no acute distress, answers questions appropriately Exam: no distress; moderately dehydrated - Head Head exam: Present: atraumatic, normal inspection - Eye Eye exam: Present: EOMI, PERRL. Absent: scleral icterus Pupils: Present: normal accommodation - ENT ENT exam: Present: mucous membranes dry, normal exam, normal oropharynx - Neck Neck exam general surgery: Present: full ROM, supple, trachea midline. Absent: lymphadenopathy, tenderness, nuchal rigidity, thyromegaly - Respiratory Respiratory exam: Present: CTAB. Absent: chest wall tenderness, rales, rhonchi, wheezes - Cardiovascular Cardiovascular exam: Present: RRR, +S1, +S2, tachycardia. Absent: diastolic murmur, distant heart sounds, systolic murmur - GI/Abdominal GI/Abdominal exam: Present: hypoactive bowel sounds, soft. Absent: guarding, hepatomegaly, mass, rebound, splenomegaly, tenderness - Extremities Exam Extremities exam: Present: full ROM, warm, radial pulses palpable and symmetrical. Absent: calf tenderness, joint swelling, normal capillary refill (delayed at roughyl 3-4 seconds), pedal edema, tenderness - Back Exam Back exam: Absent: CVA tenderness (L), CVA tenderness (R) - Neurological Exam Neurological exam: Present: alert, CN II-XII intact, oriented X3, no focal deficits, strengths equal and symetr throughout. Absent: motor sensory deficit - Psychiatric Psychiatric exam: Present: normal affect, normal mood - Skin Skin exam: Present: dry, intact, warm Internal Med - H&P Results - Labs CBC & Chem 7: 01/16/19 02:45 Labs: BMP 01/16/19 02:45 Sodium 129 L Potassium 3.7 Chloride 109 H Carbon Dioxide 13 L BUN 12 Creatinine 0.66 Glucose 267 H Calcium 8.1 L I reviewed labs from [facility] and they include the following: Sodium 128 Potassium 3.5 Chloride 100 Carbon dioxide 15 BUN 16 Creatinine 0.88 Glucose 416 Lactic acid 1.1 Urine drug screen negative CBC unremarkable - ABG Interpretation ABG results: 01/16/19 02:57 VBG pH 7.26 L VBG pCO2 30 L VBG pO2 161 H VBG HCO3 13 L - Assessment and Plan (1) DKA (diabetic ketoacidoses) Current Visit: Yes Status: Acute Assessment and plan: 1. Continue IVF w dextrose, insulin drip, hourly glucose checks, and serial BMP's per DKA protocol. 2. Convert to SQ insulin and continue IVF without dextrose once gap fully closed and patient fully hydrated. 3. Diabetic education and close follow up needs reinforced. 4. Monitor electrolytes closely and correct as necessary. Qualifiers: Diabetes mellitus type: type 1 Diabetes mellitus complication detail: without coma Qualified Code(s): E10.10 - Type 1 diabetes mellitus with ketoacidosis without coma (2) DVT prophylaxis Current Visit: Yes Status: Acute Assessment and plan: 1. EPCD's.
[2019-01-16 08:06] LABS: Estimated Average Glucose 335 mg/dl
--- NOTE | 2019-01-16 09:28 | Event Note ---
Date of Encounter: 01/16/19 Time of Encounter: 08:35 H & P revieewed. Patient was seen at bedside. Precipitating factor is still unclear. Patient is still on IV insulin. We will refer the gap to be close and then transition the patient to basal bolus regimen. Opinion UA and chest x-ray to rule out an infection as a precipitating factor. Patient has been doing okay otherwise.
[2019-01-16 09:31] LABS: VBG HCO3 16 mEq/L (21-27); VBG PCO2 27 mmHg (41-51); VBG PH 7.37 pH Units (7.32-7.42); VBG PO2 208 mmHg (25-50)
[2019-01-16 10:51] LABS: BUN/Creatinine Ratio 15 (6-26); Blood Urea Nitrogen 8 mg/dL (6-20); Calcium 8.4 mg/dL (8.6-10.3); Carbon Dioxide 21 mEq/L (23-29); Chloride 107 mEq/L (98-107); Glucose 173 mg/dL (70-105); Osmolality,Calculated 286 (280-300); Potassium 3.7 mEq/L (3.5-5.1); Sodium 137 mEq/L (136-145); eGFR For African Americans > 60 (> 60); eGFR For Non-African Americans > 60 (> 60)
[2019-01-16] MEDS ORDERED: Dextrose Gel 15 GM/37.5 ML TUBE PO PRN ×2 (11:50)
[2019-01-16] MEDS ORDERED: D5% in Water 1,000 ML IVC PRN (11:50)
[2019-01-16] MEDS ORDERED: Insulin DETEMIR 100 UNIT/ML X5UNITS SQ ONE (11:50)
[2019-01-16 12:37] LABS: BUN/Creatinine Ratio 18 (6-26); Blood Urea Nitrogen 7 mg/dL (6-20); Calcium 8.4 mg/dL (8.6-10.3); Carbon Dioxide 18 mEq/L (23-29); Chloride 109 mEq/L (98-107); Glucose 212 mg/dL (70-105); Osmolality,Calculated 282 (280-300); Potassium 4.3 mEq/L (3.5-5.1); Sodium 134 mEq/L (136-145); eGFR For African Americans > 60 (> 60); eGFR For Non-African Americans > 60 (> 60)
[2019-01-16] MEDS: Insulin LISPRO 300 UNITS/3 ML VIAL SQ SCH ×4 (13:23→20:31)
[2019-01-16 14:56] LABS: Bilirubin,Urine Negative (Negative); Blood,Urine Negative (Negative); Clarity,Urine Clear (Clear); Color,Urine Yellow (Yellow); Glucose,Urine (UA) >=1000 mg/dL (Normal); Ketones,Urine 40 mg/dL (Negative); Leukocyte Esterase,Urine Negative (Negative); Nitrite,Urine Negative (Negative); Protein,Urine Negative (Neg-Trace); Specific Gravity,Urine 1.025 (1.010-1.025); Urobilinogen,Urine Normal (Normal)
[2019-01-16] MEDS ORDERED: Acetaminophen 325 MG TABLET PO PRN (15:28)
[2019-01-17 08:38] LABS: Basophils % 0.7 %; Eosinophils # 0.1 K/mcL (0.0-0.6); Eosinophils % 1.2 %; Hematocrit 40.6 % (35.3-44.9); Hemoglobin 13.9 g/dL (11.5-15.4); Immature Granulocytes % 0.2 % (0-4); Lymphocytes # 1.8 K/mcL (0.6-4.6); Lymphocytes % 42.7 %; Mean Corpuscular HGB Conc 34.2 g/dL (31.6-35.5); Mean Corpuscular Hemoglobin 29.8 pg (28.0-33.3); Mean Corpuscular Volume 86.9 fL (83.0-100.0); Mean Platelet Volume 10.4 fL (9.4-12.4); Monocytes # 0.4 K/mcL (0.0-1.3); Neutrophils # 1.9 K/mcL (1.6-8.9); Platelet Count 214 K/mcL (140-400); Red Blood Count 4.67 M/mcL (3.82-4.97); Red Cell Distribution Width 12.2 % (11.5-14.5); Segmented Neutrophils % 46.2 %; White Blood Count 4.1 K/mcL (4.3-11.1)
[2019-01-17 09:06] LABS: Blood Urea Nitrogen 9 mg/dL (6-20); Calcium 8.6 mg/dL (8.6-10.3); Carbon Dioxide 24 mEq/L (23-29); Chloride 100 mEq/L (98-107); Glucose 342 mg/dL (70-105); Magnesium 1.7 mg/dL (1.6-2.6); Osmolality,Calculated 294 (280-300); Potassium 3.6 mEq/L (3.5-5.1); Sodium 136 mEq/L (136-145)
[2019-01-17 09:36] LABS: BUN/Creatinine Ratio 21 (6-26); eGFR For African Americans > 60 (> 60); eGFR For Non-African Americans > 60 (> 60)
[2019-01-17] MEDS: Insulin LISPRO 300 UNITS/3 ML VIAL SQ SCH ×6 (09:44→21:27)
[2019-01-17] MEDS ORDERED: Insulin DETEMIR 100 UNIT/ML X5UNITS SQ SCH (10:00)
[2019-01-17] MEDS ORDERED: Insulin DETEMIR 100 UNIT/ML X5UNITS SQ ONE (12:16)
--- NOTE | 2019-01-17 16:19 | Internal Med Progress Note ---
Hospitalist Progress Note - Encounter Date of Encounter: 01/17/19 Time of Encounter: 10:00 - Subjective Interval History: Seen at bedside. has been doign well bu the blood glucose levels have been elevated. Deneis any symptoms including polyuria, nausea, vomiting. does not look dehydrated. Is feeling overall ok. - Exam Vitals: Temp Pulse Resp BP Pulse Ox 98.2 F 96 17 109/73 100 01/17/19 15:21 01/17/19 15:21 01/17/19 15:21 01/17/19 15:21 01/17/19 15:21 Exam: General: Alert and oriented, no physical distress, able to follow commands. Respiratory: Normal vesicular breathing, no added sounds, breathing equal in both sides. CVS: Normal heart sounds, no murmurs, no edema. Extremities: No peripheral edema, peripheral pulses intact. Gastrointestinal: Soft, nontender abdomen, normal abdominal sounds. No distention noted. Genitourinary: No paravertebral tenderness. Neurological: Alert and oriented. No focal deficits. Cranial nerves II-XII intact. - Assessment and Plan (1) DKA (diabetic ketoacidoses) Current Visit: Yes Status: Acute Assessment and Plan: -Presented with DKA. -Etology unclear, seems to be related to non compliance. resolved. Swihed to basal bolus regimen but her blood glucose levels are still elevated. Increase the dose of levemir to 15 U and lisrpo to 6 U TID with meals alongwith LDSS, discussed the plan with pharmacist. -Discussed with the pt to sent her on basal bolus regmen as unsure if insulin golf shoe spike assembler is functioning well. Pt wants to go back to insulin pump. -Will dischrge the pt on insulin pump then, recommended to follow up with the skein yard drier. -Follow up on blood glucose levels. -Anticipate discharge tomorrow (2) DVT prophylaxis Current Visit: Yes Status: Acute Assessment and Plan: EPCD's. (3) Malnourished Current Visit: Yes Status: Acute Assessment and Plan: -Protein calorie malnouishment likely scodary to low intake -Encourgaed to take a balanced diet -Social issues might be a limiting factor. -floor worker well service was consulted, appreciate recommendations. (4) Nausea Current Visit: Yes Status: Acute Assessment and Plan: -Resolved -COntinue as needed zofran - Time Spent with Patient Total time spent is greater than 50% in coordination of care (as documented) at patient's floor/unit and/or counseling patient: Internal Medicine: Result - Labs CBC & Chem 7: 01/17/19 08:03 01/17/19 08:03 Labs: Short CBC 01/17/19 Range/Units 08:03 WBC 4.1 L (4.3-11.1) K/mcL Hgb 13.9 D (11.5-15.4) g/dL Hct 40.6 (35.3-44.9) % Plt Count 214 (140-400) K/mcL Neutrophils # 1.9 (1.6-8.9) K/mcL BMP 01/17/19 08:03 Sodium 136 Potassium 3.6 Chloride 100 Carbon Dioxide 24 BUN 9 Creatinine 0.42 L Glucose 342 H Calcium 8.6 - Impressions Impressions Chest X-Ray 01/16/19 08:04 IMPRESSION: No acute cardiopulmonary disease. D/ / Jazmyne Casper MD / Jazmyne Casper MD Interpreting Provider: Jazmyne Casper MD Consult Discharge Plan - Plan Referrals: Sushila Lackey MD [Partnered Physician] - 02/07/19 3:00 pm Aishwarya Schwartz CNP [Primary Care Provider] - (1) DKA (diabetic ketoacidoses) Qualifiers: Diabetes mellitus type: type 1 Diabetes mellitus complication detail: without coma Qualified Code(s): E10.10 - Type 1 diabetes mellitus with ketoacidosis without coma (3) Malnourished Qualifiers: Malnutrition type: protein-calorie malnutrition
[2019-01-17] MEDS: 0.9 % Sodium Chloride 1,000 ML IVC SCH (19:59)
[2019-01-18] MEDS: 0.9 % Sodium Chloride 1,000 ML IVC SCH (00:25)
[2019-01-18 06:07] LABS: BUN/Creatinine Ratio 33 (6-26); Blood Urea Nitrogen 14 mg/dL (6-20); Calcium 8.7 mg/dL (8.6-10.3); Carbon Dioxide 22 mEq/L (23-29); Chloride 99 mEq/L (98-107); Glucose 318 mg/dL (70-105); Osmolality,Calculated 291 (280-300); Potassium 3.9 mEq/L (3.5-5.1); Sodium 134 mEq/L (136-145); eGFR For African Americans > 60 (> 60); eGFR For Non-African Americans > 60 (> 60)
[2019-01-18] MEDS: Insulin LISPRO 300 UNITS/3 ML VIAL SQ SCH ×7 (08:38→21:45)
[2019-01-18] MEDS ORDERED: Insulin DETEMIR 100 UNIT/ML X5UNITS SQ SCH ×2 (09:00→21:00)
--- NOTE | 2019-01-18 13:16 | Internal Med Progress Note ---
Hospitalist Progress Note - Encounter Date of Encounter: 01/18/19 Time of Encounter: 13:14 - Subjective Interval History: Patient was seen and examined today at the bedside. Patient denies any issues and complaints. Patient did well overnight without any acute events overnight. Patient reports that her blood glucose this morning was high. Apart from this she denies anything else. - Exam Vitals: Temp Pulse Resp BP Pulse Ox 98.2 F 98 15 110/73 99 01/18/19 10:07 01/18/19 10:07 01/18/19 10:07 01/18/19 10:07 01/18/19 10:07 Exam: General: Alert and oriented X 3 Respiratory: Normal vesicular breathing, no added sounds, breathing equal in both sides. CVS: Normal heart sounds, no murmurs, no edema. Extremities: No peripheral edema, peripheral pulses intact. Gastrointestinal: Soft, nontender abdomen, normal abdominal sounds. No distention noted. Genitourinary: No paravertebral tenderness. Neurological: Alert and oriented. No focal deficits. Cranial nerves II-XII intact. - Assessment and Plan (1) DKA (diabetic ketoacidoses) Current Visit: Yes Status: Acute Assessment and Plan: Patient presented with DKA which seems to have resolved at this time. Patient currently on basal and bolus regimen however her blood glucose remains high. This morning patient's glucose was in 400s. Patient currently on 6 units 3 times a day which we will increase to 10 units 3 times a day. Patient currently on 15 units of basal insulin plan is to increase the insulin and follow the blood glucose. Anticipate discharge tomorrow. (2) Nausea Current Visit: Yes Status: Acute Assessment and Plan: -Resolved -Continue as needed zofran (3) DVT prophylaxis Current Visit: Yes Status: Acute Assessment and Plan: EPCD's. - Summary of Assessment and Plan Summary of Assessment and Plan: Patient currently on basal and bolus regimen for her diabetes. We will intensify her insulin regimen including basal and bolus and monitor her blood glucose today. Anticipate discharge tomorrow. - Time Spent with Patient Total time spent is greater than 50% in coordination of care (as documented) at patient's floor/unit and/or counseling patient: 25 - 35 minutes Plan of Care Discussed with: nurse Internal Medicine: Result - Labs CBC & Chem 7: 01/17/19 08:03 01/18/19 05:18 Labs: BMP 01/18/19 05:18 Sodium 134 L Potassium 3.9 Chloride 99 Carbon Dioxide 22 L BUN 14 Creatinine 0.43 L Glucose 318 H Calcium 8.7 Consult Discharge Plan - Plan Referrals: Sushila Lackey MD [Partnered Physician] - 02/07/19 3:00 pm Aishwarya Schwartz CNP [Primary Care Provider] - (1) DKA (diabetic ketoacidoses) Qualifiers: Diabetes mellitus type: type 1 Diabetes mellitus complication detail: without coma Qualified Code(s): E10.10 - Type 1 diabetes mellitus with ketoacidosis without coma
[2019-01-18] MEDS ORDERED: Insulin DETEMIR 100 UNIT/ML X5UNITS SQ ONE (13:26)
[2019-01-19 02:02] LABS: BUN/Creatinine Ratio 36 (6-26); Blood Urea Nitrogen 25 mg/dL (6-20); Calcium 9.3 mg/dL (8.6-10.3); Carbon Dioxide 23 mEq/L (23-29); Chloride 99 mEq/L (98-107); Glucose 348 mg/dL (70-105); Osmolality,Calculated 292 (280-300); Potassium 3.9 mEq/L (3.5-5.1); Sodium 132 mEq/L (136-145); eGFR For African Americans > 60 (> 60); eGFR For Non-African Americans > 60 (> 60)
[2019-01-19] MEDS ORDERED: Insulin DETEMIR 100 UNIT/ML X5UNITS SQ SCH (09:00)
[2019-01-19] MEDS: Insulin LISPRO 300 UNITS/3 ML VIAL SQ SCH ×7 (09:58→21:39)
--- NOTE | 2019-01-19 13:52 | Internal Med Progress Note ---
Hospitalist Progress Note - Encounter Date of Encounter: 01/19/19 Time of Encounter: 13:50 - Subjective Interval History: Patient was seen and examined with this morning. Patient denies any acute issues and concerns. Pt and glucose was 196. Patient is regimen was adjusted yesterday. - Exam Vitals: Temp Pulse Resp BP Pulse Ox 98.7 F 101 15 101/65 98 01/19/19 10:04 01/19/19 10:04 01/19/19 10:04 01/19/19 10:04 01/19/19 10:04 Exam: General: Alert and oriented X 3 Respiratory: Normal vesicular breathing, no added sounds, breathing equal in both sides. CVS: Normal heart sounds, no murmurs, no edema. Extremities: No peripheral edema, peripheral pulses intact. Gastrointestinal: Soft, nontender abdomen, normal abdominal sounds. No distention noted. Genitourinary: No paravertebral tenderness. Neurological: Alert and oriented. No focal deficits. Cranial nerves II-XII intact. - Assessment and Plan (1) DKA (diabetic ketoacidoses) Current Visit: Yes Status: Acute Assessment and Plan: Patient presented with DKA which seems to have resolved at this time. Patient currently on basal and bolus regimen however her blood glucose remains high. This morning patient's glucose was in 400s. Patient currently on 10 units 3 times a day which we will increase to 15 units 3 times a day. Patient currently on 20 units of basal insulin plan is to increase the insulin to 25 BID and follow the blood glucose. Anticipate discharge tomorrow. (2) Nausea Current Visit: Yes Status: Acute Assessment and Plan: -Resolved -Continue as needed zofran (3) DVT prophylaxis Current Visit: Yes Status: Acute Assessment and Plan: EPCD's. - Time Spent with Patient Total time spent is greater than 50% in coordination of care (as documented) at patient's floor/unit and/or counseling patient: 25 - 35 minutes Plan of Care Discussed with: patient Internal Medicine: Result - Labs CBC & Chem 7: 01/17/19 08:03 01/19/19 00:49 Labs: BMP 01/19/19 00:49 Sodium 132 L Potassium 3.9 Chloride 99 Carbon Dioxide 23 BUN 25 H Creatinine 0.69 Glucose 348 H Calcium 9.3 Consult Discharge Plan - Plan Referrals: Sushila Lackey MD [Partnered Physician] - 02/07/19 3:00 pm Aishwarya Schwartz, [employer] [Primary Care Provider] - (1) DKA (diabetic ketoacidoses) Qualifiers: Diabetes mellitus type: type 1 Diabetes mellitus complication detail: without coma Qualified Code(s): E10.10 - Type 1 diabetes mellitus with ketoacidosis without coma
[2019-01-19] MEDS: Insulin DETEMIR 100 UNIT/ML X5UNITS SQ SCH (21:39)
[2019-01-20 04:34] LABS: BUN/Creatinine Ratio 45 (6-26); Blood Urea Nitrogen 28 mg/dL (6-20); Calcium 9.3 mg/dL (8.6-10.3); Carbon Dioxide 23 mEq/L (23-29); Chloride 103 mEq/L (98-107); Glucose 193 mg/dL (70-105); Osmolality,Calculated 281 (280-300); Potassium 3.8 mEq/L (3.5-5.1); Sodium 130 mEq/L (136-145); eGFR For African Americans > 60 (> 60); eGFR For Non-African Americans > 60 (> 60)
[2019-01-20 07:18] VITALS: BP 111/74
--- NOTE | 2019-01-20 08:33 | Discharge Summary ---
- NOTES TO OUTPATIENT PROVIDER Notes to Outpatient Provider: Patient is a 23-year-old female with type 1 diabetes presents to the [facility] with .DKA. Patient was resuscitated with IV fluids and electrolyte replacement insulin drip and later was changed to insulin basal and bolus regimen. At the time of discharge patien hermes was on Levemir 25 twice a day, and lispro 15 units 3 times a day with meal plus sliding scale. Please follow-up with patient for diabetic education and insulin regimen. At discharge patient requested to get discharged on insulin pump. Patient got discharged on insulin pump Date of Encounter: 01/20/19 Time of Encounter: 08:31 - Discharge Diagnosis (1) DKA (diabetic ketoacidoses) Priority: Primary Status: Resolved Qualifiers: Diabetes mellitus type: type 1 Diabetes mellitus complication detail: without coma Qualified Code(s): E10.10 - Type 1 diabetes mellitus with ketoacidosis without coma (2) Nausea Priority: Secondary Status: Chronic (3) DVT prophylaxis Priority: Secondary Status: Acute Hospital course: Ms. Black is a 23 year old female with history of type 1 diabetes mellitus on insulin pump presented to the [facility] with high blood glucose. Upon initial presentation patient found t be in DKA. Patient was treated for DKA with fluid resuscitation, electrolyte replacement and insulin drip. Patient was later then switched to insulin basal and bolus regimen. Upon discharge patient wanted to the discharge on her own insulin pump. Patient was discharged on insulin pump. Patient has appointment with endocrinology and her primary care provider. Discharge discussed with: patient, family, nurse, social work - Time Spent with Patient Total time spent providing and/or coordinating discharge services: 40 Time spent: Greater than 30 minutes - Discharge Medications Prescriptions: Continued Sertraline [Zoloft] 100 mg PO DAILY Albuterol Sulfate [Proventil Inhaler] 2 puff PO Q4-6H PRN PRN Reason: Shortness Of Breath Pnv No.121/Iron/Folic Acid [ Multivitamin Tablet] 1 tab PO DAILY Doxepin [Sinequan] 25 mg PO HS Insulin LISPRO [Admelog] 0 unit SQ DAILY Discontinued Ondansetron ODT [Zofran ODT] 4 mg PO Q6H PRN PRN Reason: Nausea Docusate Sodium [Stool Softener] 250 mg PO DAILY PRN PRN Reason: Constipation Polyethylene Glycol 3350 [MiraLAX] 17 gm PO DAILY PRN PRN Reason: Constipation Home Medications: Insulin LISPRO [Admelog] 0 unit SQ DAILY 12/12/18 [History] Albuterol Sulfate [Proventil Inhaler] 2 puff PO Q4-6H PRN 01/17/19 [History] Doxepin [Sinequan] 25 mg PO HS 01/17/19 [History] Pnv No.121/Iron/Folic Acid [ Multivitamin Tablet] 1 tab PO DAILY 01/17/19 [History] Sertraline [Zoloft] 100 mg PO DAILY 01/17/19 [History] Allergies/Adverse Reactions: Allergy/AdvReac Type Severity Reaction Status Date / Time surgical tape Allergy Redness of Uncoded 01/15/19 22:24 Skin Date of admission: 01/16/19 02:20 Primary care physician: Aishwarya Schwartz CNP Consults: 01/17/19 10:35 Consult to Compensation Adjuster [CONS] Stat Reason for SW Consult: Discharge planning. Discharging clinician: Luis Scott - Constitutional Vitals: Temp Pulse Resp BP Pulse Ox 98.4 F 87 16 111/74 99 01/20/19 07:11 01/20/19 07:11 01/20/19 07:11 01/20/19 07:11 01/20/19 07:11 General appearance: Present: cooperative, A&O X 3, no acute distress, answers questions appropriately Exam: General: Alert and oriented X 3 Respiratory: Normal vesicular breathing, no added sounds, breathing equal in both sides. CVS: Normal heart sounds, no murmurs, no edema. Extremities: No peripheral edema, peripheral pulses intact. Gastrointestinal: Soft, nontender abdomen, normal abdominal sounds. No distention noted. Genitourinary: No paravertebral tenderness. Neurological: Alert and oriented. No focal deficits. Cranial nerves II-XII intact. - Patient Status Disposition: Home, Self-Care Condition: Good Overall status at discharge: patient is back to baseline - Discharge Instructions Follow Up With: Sushila Lackey MD [Partnered Physician] - 02/07/19 3:00 pm Aishwarya Schwartz CNP [Primary Care Provider] - - Diet and Activity Activity: increase activity as tolerated Diet: diabetic diet
[2019-01-20] MEDS: Insulin LISPRO 300 UNITS/3 ML VIAL SQ SCH ×2 (08:42→08:43)
[2019-01-20] MEDS: Insulin DETEMIR 100 UNIT/ML X5UNITS SQ SCH (09:18)
== END 2019-01-20 11:32 | disposition home or self-care (01) ==
LOC: 2NNU → SUATTDRO 02:20 → 3ANU 18:09
PROVIDERS: ADMIT Pediatrics; ATTEND Family Medicine

== ENCOUNTER 2020-03-04 10:56 | Inpatient (IN) ==
[2020-03-04] MEDS ORDERED: Ondansetron 4 MG/2 ML VIAL IVP PRN (18:06)
[2020-03-04] MEDS ORDERED: Naloxone 0.4 MG/ML INJ IVP PRN (18:06)
[2020-03-04] MEDS ORDERED: Insulin Regular, Human 100 UNIT/ML IV PRN (18:06)
[2020-03-04] MEDS ORDERED: Albuterol 2.5 MG/3 ML NEBULIZER IH PRN (18:06)
[2020-03-04] MEDS ORDERED: Insulin Human Regular 100 UNIT in 0.9 % Sodium Chloride 100 ML IVC SCH ×2 (18:15→19:45)
[2020-03-04 19:00] LABS: Basophils % 0.3 %; Hematocrit 41.6 % (35.3-44.9); Hemoglobin 13.3 g/dL (11.5-15.4); Immature Granulocytes % 0.9 % (0-4); Lymphocytes # 1.8 K/mcL (0.6-4.6); Lymphocytes % 15.3 %; Mean Corpuscular Hemoglobin 31.1 pg (28.0-33.3); Mean Corpuscular Volume 97.2 fL (83.0-100.0); Monocytes # 0.8 K/mcL (0.0-1.3); Monocytes % 6.5 %; Neutrophils # 9.2 K/mcL (1.6-8.9); Platelet Count 271 K/mcL (140-400); Red Blood Count 4.28 M/mcL (3.82-4.97); Red Cell Distribution Width 12.8 % (11.5-14.5)
[2020-03-04 19:02] LABS: VBG HCO3 5 mEq/L (21-27); VBG PCO2 15 mmHg (41-51); VBG PH 7.16 pH Units (7.32-7.42); VBG PO2 99 mmHg (25-50)
[2020-03-04 19:06] LABS: Prothrombin Time 10.8 Seconds (9.4-12.1)
[2020-03-04 19:09] LABS: VBG Ionized Calcium 1.15 mmol/L (1.15-1.35)
[2020-03-04 19:18] LABS: Alanine Aminotransferase 15 Units/L (7-52); Albumin 3.7 g/dL (3.5-5.7); Albumin/Globulin Ratio 1.9 (1.1-2.2); Alkaline Phosphatase 90 Units/L (34-104); Aspartate Amino Transferase 11 Units/L (13-39); BUN/Creatinine Ratio 9 (6-26); Bilirubin,Indirect 0.3 mg/dL (0.0-1.0); Bilirubin,Total 0.3 mg/dL (0.3-1.0); Blood Urea Nitrogen 6 mg/dL (6-20); Calcium 7.7 mg/dL (8.6-10.3); Carbon Dioxide 5 mEq/L (23-29); Chloride 119 mEq/L (98-107); Globulin 1.9 g/dL (2.4-3.5); Glucose 284 mg/dL (70-105); Magnesium 1.5 mg/dL (1.6-2.6); Osmolality,Calculated 304 (280-300); Potassium 3.3 mEq/L (3.5-5.1); Sodium 143 mEq/L (136-145); Total Protein 5.6 g/dL (6.4-8.9); eGFR For African Americans > 60 (> 60); eGFR For Non-African Americans > 60 (> 60)
[2020-03-04] MEDS ORDERED: Potassium Phosphate 44 MEQ in 0.9 % Sodium Chloride 250 ML IVPB ONE (19:32)
[2020-03-04] MEDS: D5% in 0.45% NACL w KCl 20 MEQ/1,000 ML MLS IVC PRN ×2 (19:33→23:40)
[2020-03-04] MEDS ORDERED: *HR* Dextrose 50 % in Water (Vial) 50 ML VIAL IVP PRN (19:43)
[2020-03-04] MEDS: Azithromycin 500 MG in 0.9 % Sodium Chloride 250 ML IVPB SCH (19:50)
[2020-03-04 23:35] LABS: VBG Ionized Calcium 1.25 mmol/L (1.15-1.35)
[2020-03-04 23:43] LABS: Amphetamine Screen,Urine Negative ng/mL (Cutoff=1000); Barbiturate Screen,Urine Negative ng/mL (Cutoff=200); Benzodiazepines Screen,Urine Negative ng/mL (Cutoff=200); Cannabinoid Screen,Urine Negative ng/mL (Cutoff = 50); Cocaine Screen,Urine Negative ng/mL (Cutoff= 300); Opiate Screen,Urine Negative ng/mL (Cutoff=300); Phencyclidine Screen,Urine Negative ng/mL (Cutoff=25)
[2020-03-04 23:58] LABS: BUN/Creatinine Ratio 7 (6-26); Blood Urea Nitrogen 4 mg/dL (6-20); Carbon Dioxide 12 mEq/L (23-29); Chloride 121 mEq/L (98-107); Glucose 252 mg/dL (70-105); Magnesium 1.2 mg/dL (1.6-2.6); Osmolality,Calculated 293 (280-300); Phosphorous < 1.0 mg/dL (2.7-4.5); Potassium 4.4 mEq/L (3.5-5.1); Sodium 139 mEq/L (136-145); eGFR For African Americans > 60 (> 60); eGFR For Non-African Americans > 60 (> 60)
[2020-03-05] MEDS: Insulin Human Regular 100 UNIT in 0.9 % Sodium Chloride 100 ML IVC SCH ×2 (01:00→12:21)
[2020-03-05] MEDS: *HR* Dextrose 50 % in Water (Vial) 50 ML VIAL IVP PRN (03:07)
[2020-03-05] MEDS: D5% in 0.45% NACL w KCl 20 MEQ/1,000 ML MLS IVC PRN ×3 (03:50→18:05)
[2020-03-05 05:10] LABS: Basophils % 0.4 %; Eosinophils % 0.1 %; Immature Granulocytes % 0.4 % (0-4); Lymphocytes # 2.1 K/mcL (0.6-4.6); Lymphocytes % 24.9 %; Mean Corpuscular HGB Conc 32.4 g/dL (31.6-35.5); Mean Corpuscular Hemoglobin 30.3 pg (28.0-33.3); Mean Corpuscular Volume 93.7 fL (83.0-100.0); Mean Platelet Volume 9.8 fL (9.4-12.4); Monocytes # 1.1 K/mcL (0.0-1.3); Monocytes % 13.4 %; Neutrophils # 5.1 K/mcL (1.6-8.9); Platelet Count 216 K/mcL (140-400); Red Blood Count 3.63 M/mcL (3.82-4.97); Red Cell Distribution Width 12.7 % (11.5-14.5); Segmented Neutrophils % 60.8 %; White Blood Count 8.4 K/mcL (4.3-11.1)
[2020-03-05 05:11] LABS: VBG Ionized Calcium 1.21 mmol/L (1.15-1.35)
[2020-03-05 05:37] LABS: BUN/Creatinine Ratio 8 (6-26); Blood Urea Nitrogen 4 mg/dL (6-20); Calcium 7.5 mg/dL (8.6-10.3); Carbon Dioxide 15 mEq/L (23-29); Chloride 119 mEq/L (98-107); Glucose 169 mg/dL (70-105); Magnesium 1.9 mg/dL (1.6-2.6); Osmolality,Calculated 289 (280-300); Phosphorous 1.4 mg/dL (2.7-4.5); Potassium 3.1 mEq/L (3.5-5.1); Sodium 139 mEq/L (136-145); eGFR For African Americans > 60 (> 60); eGFR For Non-African Americans > 60 (> 60)
[2020-03-05] MEDS ORDERED: Magnesium Sulfate 1 GM/102 ML PIGGYBACK IVPB ONE (05:42)
[2020-03-05] MEDS: *HR* Heparin 5,000 UNIT/ML VIAL SQ SCH ×2 (06:01→16:30)
[2020-03-05] MEDS: cefTRIAXone 1,000 MG in Water for inj. (sterile) 10 ML IVP SCH (08:21)
[2020-03-05] MEDS: Acetaminophen 325 MG TABLET PO PRN (08:22)
[2020-03-05] MEDS: Pantoprazole 40 MG VIAL IVP SCH (08:22)
[2020-03-05 11:49] LABS: VBG Ionized Calcium 0.93 mmol/L (1.15-1.35)
[2020-03-05 15:36] LABS: BUN/Creatinine Ratio 7 (6-26); Blood Urea Nitrogen 3 mg/dL (6-20); Calcium 7.6 mg/dL (8.6-10.3); Carbon Dioxide 16 mEq/L (23-29); Chloride 116 mEq/L (98-107); Glucose 130 mg/dL (70-105); Magnesium 1.9 mg/dL (1.6-2.6); Osmolality,Calculated 282 (280-300); Phosphorous 1.6 mg/dL (2.7-4.5); Potassium 3.5 mEq/L (3.5-5.1); Sodium 137 mEq/L (136-145); eGFR For African Americans > 60 (> 60); eGFR For Non-African Americans > 60 (> 60)
[2020-03-05] MEDS ORDERED: Potassium Phosphate 44 MEQ in 0.9 % Sodium Chloride 250 ML IVPB ONE (15:38)
[2020-03-05] MEDS: Calcium Gluconate 1gm/50mL 1 GM/50 ML BAG IVPB SCH ×2 (16:22→18:02)
[2020-03-05] MEDS: Azithromycin 500 MG in 0.9 % Sodium Chloride 250 ML IVPB SCH (20:10)
[2020-03-06] MEDS: D5% in 0.45% NACL w KCl 20 MEQ/1,000 ML MLS IVC PRN (01:04)
[2020-03-06 01:29] LABS: Basophils % 0.7 %; Eosinophils % 0.7 %; Hematocrit 37.2 % (35.3-44.9); Hemoglobin 12.1 g/dL (11.5-15.4); Immature Granulocytes % 0.2 % (0-4); Lymphocytes # 3.1 K/mcL (0.6-4.6); Lymphocytes % 55.7 %; Mean Corpuscular HGB Conc 32.5 g/dL (31.6-35.5); Mean Corpuscular Hemoglobin 30.4 pg (28.0-33.3); Mean Corpuscular Volume 93.5 fL (83.0-100.0); Mean Platelet Volume 9.6 fL (9.4-12.4); Monocytes # 0.3 K/mcL (0.0-1.3); Monocytes % 4.5 %; Neutrophils # 2.1 K/mcL (1.6-8.9); Platelet Count 199 K/mcL (140-400); Red Blood Count 3.98 M/mcL (3.82-4.97); Red Cell Distribution Width 12.5 % (11.5-14.5); Segmented Neutrophils % 38.2 %; White Blood Count 5.5 K/mcL (4.3-11.1)
[2020-03-06 01:38] LABS: VBG Ionized Calcium 1.22 mmol/L (1.15-1.35)
[2020-03-06 01:58] LABS: BUN/Creatinine Ratio 5 (6-26); Blood Urea Nitrogen 2 mg/dL (6-20); Calcium 7.9 mg/dL (8.6-10.3); Carbon Dioxide 15 mEq/L (23-29); Chloride 113 mEq/L (98-107); Glucose 136 mg/dL (70-105); Magnesium 1.6 mg/dL (1.6-2.6); Osmolality,Calculated 280 (280-300); Phosphorous 2.1 mg/dL (2.7-4.5); Potassium 3.3 mEq/L (3.5-5.1); Sodium 136 mEq/L (136-145); eGFR For African Americans > 60 (> 60); eGFR For Non-African Americans > 60 (> 60)
[2020-03-06] MEDS: *HR* Dextrose 50 % in Water (Vial) 50 ML VIAL IVP PRN (03:18)
[2020-03-06] MEDS: Acetaminophen 325 MG TABLET PO PRN (03:44)
[2020-03-06] MEDS: *HR* Heparin 5,000 UNIT/ML VIAL SQ SCH ×2 (06:07→16:14)
[2020-03-06] MEDS ORDERED: LACTATED RINGERS IVC SCH (07:00)
[2020-03-06] MEDS ORDERED: POTASSIUM CHLORIDE IVC SCH (07:00)
[2020-03-06] MEDS ORDERED: D5 IVC SCH (07:00)
[2020-03-06] MEDS: cefTRIAXone 1,000 MG in Water for inj. (sterile) 10 ML IVP SCH (07:30)
[2020-03-06] MEDS: Pantoprazole 40 MG VIAL IVP SCH (07:30)
[2020-03-06 12:48] LABS: VBG Ionized Calcium 0.97 mmol/L (1.15-1.35)
[2020-03-06 13:05] LABS: BUN/Creatinine Ratio 4 (6-26); Blood Urea Nitrogen 2 mg/dL (6-20); Calcium 8.1 mg/dL (8.6-10.3); Carbon Dioxide 20 mEq/L (23-29); Chloride 107 mEq/L (98-107); Glucose 364 mg/dL (70-105); Magnesium 1.5 mg/dL (1.6-2.6); Osmolality,Calculated 287 (280-300); Phosphorous 2.4 mg/dL (2.7-4.5); Potassium 4.6 mEq/L (3.5-5.1); Sodium 133 mEq/L (136-145); eGFR For African Americans > 60 (> 60); eGFR For Non-African Americans > 60 (> 60)
[2020-03-06] MEDS ORDERED: D5% in Water 1,000 ML IVC PRN ×2 (13:21→13:44)
[2020-03-06] MEDS ORDERED: Dextrose Gel 15 GM/37.5 ML TUBE PO PRN ×4 (13:21→13:44)
[2020-03-06] MEDS ORDERED: *HR* Dextrose 50 % in Water (Vial) 50 ML VIAL IVP PRN ×2 (13:21→13:44)
[2020-03-06] MEDS ORDERED: Calcium Gluconate 1gm/50mL 1 GM/50 ML BAG IVPB SCH ×2 (13:30→14:30)
[2020-03-06] MEDS ORDERED: Ringers Solution, Lactated 1,000 ML IVC SCH (13:30)
[2020-03-06] MEDS ORDERED: Insulin DETEMIR 100 UNIT/ML X5UNITS SQ SCH (13:30)
[2020-03-06] MEDS ORDERED: Ondansetron 4 MG/2 ML VIAL IVP PRN (13:44)
[2020-03-06] MEDS ORDERED: Albuterol 2.5 MG/3 ML NEBULIZER IH PRN (13:44)
[2020-03-06] MEDS ORDERED: Acetaminophen 325 MG TABLET PO PRN (13:44)
[2020-03-06] MEDS ORDERED: Naloxone 0.4 MG/ML INJ IVP PRN (13:44)
[2020-03-06] MEDS: Ringers Solution, Lactated 1,000 ML IVC SCH (13:59)
[2020-03-06] MEDS: Insulin DETEMIR 100 UNIT/ML X5UNITS SQ SCH ×2 (15:03→21:21)
[2020-03-06 15:10] LABS: Estimated Average Glucose 332 mg/dl
[2020-03-06] MEDS: Insulin LISPRO 300 UNITS/3 ML VIAL SQ SCH (16:10)
[2020-03-06] MEDS ORDERED: Insulin LISPRO 300 UNITS/3 ML VIAL SQ SCH ×3 (16:30→21:00)
[2020-03-07] MEDS: Ringers Solution, Lactated 1,000 ML IVC SCH (04:24)
[2020-03-07 04:37] LABS: Basophils # 0.1 K/mcL (0.0-0.2); Eosinophils # 0.1 K/mcL (0.0-0.6); Eosinophils % 1.4 %; Hematocrit 35.8 % (35.3-44.9); Hemoglobin 12.2 g/dL (11.5-15.4); Immature Granulocytes % 4.8 % (0-4); Lymphocytes # 2.9 K/mcL (0.6-4.6); Lymphocytes % 59.2 %; Mean Corpuscular HGB Conc 34.1 g/dL (31.6-35.5); Mean Corpuscular Hemoglobin 30.7 pg (28.0-33.3); Mean Corpuscular Volume 90.2 fL (83.0-100.0); Mean Platelet Volume 11.1 fL (9.4-12.4); Monocytes # 0.3 K/mcL (0.0-1.3); Monocytes % 5.4 %; Neutrophils # 1.4 K/mcL (1.6-8.9); Nucleated Red Blood Cells 0.8 /100 WBC (0); Platelet Count 152 K/mcL (140-400); Red Blood Count 3.97 M/mcL (3.82-4.97); Red Cell Distribution Width 11.9 % (11.5-14.5); Segmented Neutrophils % 28.2 %; White Blood Count 4.8 K/mcL (4.3-11.1)
[2020-03-07 04:48] LABS: Alanine Aminotransferase 14 Units/L (7-52); Albumin 2.8 g/dL (3.5-5.7); Albumin/Globulin Ratio 1.4 (1.1-2.2); Alkaline Phosphatase 70 Units/L (34-104); Aspartate Amino Transferase 22 Units/L (13-39); BUN/Creatinine Ratio 25 (6-26); Bilirubin,Total 0.4 mg/dL (0.3-1.0); Blood Urea Nitrogen 13 mg/dL (6-20); Calcium 8.1 mg/dL (8.6-10.3); Carbon Dioxide 24 mEq/L (23-29); Chloride 104 mEq/L (98-107); Glucose 227 mg/dL (70-105); Magnesium 1.6 mg/dL (1.6-2.6); Osmolality,Calculated 291 (280-300); Phosphorous 4.6 mg/dL (2.7-4.5); Potassium 4.3 mEq/L (3.5-5.1); Sodium 137 mEq/L (136-145); Total Protein 4.8 g/dL (6.4-8.9); eGFR For African Americans > 60 (> 60); eGFR For Non-African Americans > 60 (> 60)
[2020-03-07] MEDS: *HR* Heparin 5,000 UNIT/ML VIAL SQ SCH (06:05)
[2020-03-07 06:55] VITALS: BP 134/93
[2020-03-07] MEDS: Insulin LISPRO 300 UNITS/3 ML VIAL SQ SCH (07:35)
[2020-03-07] MEDS: Insulin DETEMIR 100 UNIT/ML X5UNITS SQ SCH (07:36)
[2020-03-07] MEDS ORDERED: Pantoprazole 40 MG VIAL IVP SCH (09:00)
== END 2020-03-07 12:22 | disposition home or self-care (01) | DRG 420 ==
LOC: ICNU → SUATTDRO 18:10 → 3ANU 03-06 17:58
PROVIDERS: ADMIT Pediatrics; ATTEND Internal Medicine